=== PATIENT | female | born 1965 | race Caucasian/White ===

== ENCOUNTER 2016-03-03 08:38 | Inpatient (IN) | payer OTHER ==
[~2016-03-03] VITALS: Ht 165.1 cm; Wt 62.5 kg
[~2016-03-03 08:38] MED LIST: CELEBREX200 MG PO; CYCLOBENZAPRINE10 MG PO; VIVELLE-DOT0.1 MG
--- NOTE | 2016-03-03 11:00 | DIAGNOSTIC IMAGING REPORT ---
PROCEDURE: XR CHEST 1 VIEW INDICATION: SHORTNESS OF BREATH, initial encounter TECHNIQUE: Portable AP view 10:36 a.m. COMPARISON: None. FINDINGS: Markedly distended gastric bubble with mild elevation of the left hemidiaphragm and left basilar atelectasis Heart and mediastinum are normal. Thorax is normal. IMPRESSION: 1. Markedly distended gastric bubble with mild left basilar atelectasis
--- NOTE | 2016-03-03 12:44 | DIAGNOSTIC IMAGING REPORT ---
PROCEDURE: CT ABDOMEN/PELVIS W/O CONTRAST INDICATION: Diffuse abdominal pain TECHNIQUE: Noncontrast axial images were obtained of the entire abdomen and pelvis with sagittal and coronal reformations. COMPARISON: Chest x-ray 03/03/[address] abdomen/pelvis 01/26/2016. FINDINGS: ABDOMEN: Marked gaseous distention of the stomach and marked distention of multiple loops of small bowel. Decompression of the large bowel. Transition zone in the right lower quadrant. Cholecystectomy. Stranding around the head of the pancreas suggestive of pancreatitis. Liver, spleen, adrenal glands and kidneys are unremarkable. Normal abdominal aorta. PELVIS: Midline herniorrhaphy with stable 9 x 2.5 cm fluid collection posterior to the surgical mesh. Stable 1 cm fat-containing hernia superior to the surgical mesh. Stable 2 cm fat-containing midline suprapubic hernia. Hysterectomy. There is no free fluid or free air. Bones are unremarkable. IMPRESSION: 1. High-grade small bowel obstruction with transition point in the right lower quadrant 2. Cholecystectomy and hysterectomy 3. Findings suggestive of acute pancreatitis. Correlate clinically. 4. Midline ventral herniorrhaphy with stable postoperative seroma posterior to the surgical mesh 5. Results discussed with Dr. Leiva All CT scans at this facility use dose modulation, iterative reconstruction, and/or weight-based dosing when appropriate to reduce radiation dose to as low as reasonably achievable.
--- NOTE | 2016-03-03 13:06 | ED ORDER SUMMARY ---
..... Patient: LEAH MARTEL OrderSheet [facility] VisitID: [id number] [address] [place] [address] 50y, F Registration Date/Time: 03/03/2016 ORDER SHEET Weight: 61.2 kg (stated) Allergies: No Known Drug Allergy GENERAL ORDERS: CT Abd/Pel w Cont (No) (N/A) Urgent (09:04 03/03/2016 PHutchinson DO) (Ack 10:20 OHmagaly) (10:38 LWhalen R.N.) (Cancelled: GFR 3811:18 PHutchinson DO) Chest 1V Urgent (09:05 03/03/2016 PHutchinson DO) (Ack 10:20 OHlogannandez) (10:38 LWhalen R.N.) UA-Culture if indicated Urgent (:03/03/2016 PHutchinson DO) (10:16 LWhalen R.N.) Amylase Urgent (09:03/03/2016 PHutchinson DO) (Ack 10:19 OHlogannandez) (10:38 LWhalen R.N.) Lipase Urgent (09:03/03/2016 PHutchinson DO) (Ack 10:19 OHernandez) (10:38 LWhalen R.N.) Cardiac Panel Stat (09:03/03/2016 PHutchinson DO) (Ack 10:20 OHernandez) (10:38 LWhalen R.N.) Lactate, Serum Urgent (09:03/03/2016 PHutchinson DO) (Ack 10:20 OHlogannandez) (10:38 TBergley) Urine Drug Screen Urgent (09:03/03/2016 PHutchinson DO) (Ack 10:20 OHernandez) (10:38 LWhalen R.N.) BNP Urgent (:03/03/2016 PHutchinson DO) (Ack 10:20 OHernandez) (10:38 LWhalen R.N.) NPO (09:03/03/2016 PHutchinson DO) (Ack 10:19 OHernandez) (10:46 LWhalen R.N.) Blood Culture (No) (N/A) Urgent (10:30 03/03/2016 [facility]) (Ack 10:38 TBergley) (10:38 LWhalen R.N.) NG Tube (to light suction, to intermittent suction) (11:04 03/03/2016 [facility] DO) (11:10 LWhalen R.N.) EKG - ER Stat (11:05 03/03/2016 [facility]) (Ack 11:07 TBergley) (11:30 TBergley) CT Abd/Pel wo Cont (GFR 38.9) Urgent (11:18 03/03/2016 [facility]) (Ack 11:22 TBergley) (12:12 Victoria) Lactate, Serum (repeat now) Urgent (15:14 03/03/2016 [facility]) (Ack 15:52 TBergley) (16:32 Janetteck R.N.) MEDICATION ORDERS: IV FLUIDS: IV NS : initial bolus 1000 mL (1000 mL/hr), then 500 mL/hr for X2 (NOW) (09:04 03/03/2016 [facility]) (10:10 LSullivan R.N.) Dilaudid IV 0.5 mg (may repeat x 1 prn pain) (09:03/03/2016 [facility]) (10:33 LWhalen R.N.) Reglan IV 10 mg (NOW) (09:03/03/2016 [facility]) (10:33 LWhalen R.N.) Zofran IV 4 mg (NOW) (09:03/03/2016 [facility]) (10:34 LWhalen R.N.) Protonix IVP 40mg 40 mg (Mix in NS 10ml over 2min) (09:03/03/2016 [facility]) (10:33 LWhalen R.N.) Ceftriaxone IV 1 gm/50mL (NOW) (10:29 03/03/2016 [facility]) (Ack 10:46 LWhalen R.N.) (10:53 LWhalen R.N.) ORDER SHEET NOTES: [Electronically signed by Leo Leiva DO (:43 03/03/2016)] [Electronically signed by Sukumar Hoang R.N. (19:12 03/04/2016)] [Electronically locked/signed by Sukumar Hoang R.N. (:12 03/04/2016)]
--- NOTE | 2016-03-03 13:06 | ED CLINICAL REPORT ---
Clinical Report - Physicians/Mid Levels [facility] [address] [place] [address] 03/03/2016 8:39 Patient: LEAH MARTEL Time Seen: 08:50. Arrived- By private vehicle. Historian- patient. HISTORY OF PRESENT ILLNESS Chief Complaint: ABDOMINAL PAIN and VOMITING and NAUSEA abdominal distention. At its maximum, severity described as moderate. When seen in the E.D., severity described as moderate. Modifying factors- worsened by movement and food. Relieved by rest. This started about 2 days ago and is still present. It was gradual in onset and has been waxing/waning. It is described as "pain". Not described as well localized. No radiation. It is described as located in the right side of the back and left side of the back. The patient has had nausea. She has had vomiting. The vomiting has occurred several times. No bilious emesis, blood-tinged emesis or frankly bloody emesis. No diarrhea. Similar symptoms previously: None. Recent medical care: Not recently seen/assessed. REVIEW OF SYSTEMS No black stools, hematemesis, pain with urination, urinary frequency or bloody stools. No fever, headache, sore throat, chest pain or difficulty breathing. No chills. She has had difficulty with urination (decreased urination), and back pain. Last bowel movement: yesterday. All systems otherwise negative, except as recorded above. PAST HISTORY PCP: Dr Laguna. No history of bowel obstruction or diabetes mellitus. Gallstones. Hiatal hernia. Gastroesophageal reflux. Uterine fibroids. History of uterine cancer. (Bilateral tubovarian abscesses (noted during lap hyst)). Surgeries: Carpal tunnel surgery. Colonoscopy (with forceps polypectomy in 08/2013 - Dr Mueller). Endoscopy. Had complete abdominal hysterectomy with bilateral salpingectomy and oophorectomy due to uterine cancer ( 11 -complicated by poorly healing abdominal wound). Laparotomy (Moses fundoplication). (Nasal surgery). Medications: Hormone patch. Cyclobenzaprine HCl Oral. CeleBREX Oral. Allergies: No Known Drug Allergy. SOCIAL HISTORY Smoker- current status unknown. Occasional alcohol use. No drug use. ADDITIONAL NOTES The nursing notes have been reviewed. PHYSICAL EXAM Vital Signs: 03/03/2016 08:57 BP: 180/106. HR: 112. RR: 18. O2 saturation: 100%. Temp: 97 F. Appearance: Alert. Oriented X3. Patient in moderate distress. Eyes: Eyes normal inspection. No scleral icterus or pale conjunctivae. ENT: Pharynx normal. No pharyngeal erythema or tonsillar exudate. The mucous membranes are not dry. Neck: Normal inspection. Neck supple. CVS: Tachycardia. Heart sounds normal. Pulses normal. Respiratory: No respiratory distress. Breath sounds normal. Abdomen: Moderate tenderness diffusely. Guarding present. No mass. Distention with tenderness to palpation and tympany to percussion. No rebound tenderness. Back: Normal inspection. Skin: Skin warm and dry. Normal skin color. Normal skin turgor. Extremities: Extremities exhibit normal ROM. No lower extremity edema. No calf tenderness. No lower extremity edema. Neuro: Oriented X 3. No motor deficit. No sensory deficit. LABS, X-RAYS, AND EKG EKG: EKG time: (11:24). Regular narrow-complex tachycardia (ventricular rate 115). Sinus tachycardia. Left atrial enlargement. Nondiagnostic Q waves in lead V2 consistent with anteroseptal infarction. Non-specific ST segment / T wave abnormalities. Non-specific T wave inversion in lead III. The study has been interpreted contemporaneously by me. The EKG appears to be a good tracing. Rhythm Strip #1: Sinus tachycardia. Regular rhythm. Narrow QRS complexes. No ectopy. Chest X-ray: (IMPRESSION: 1. Markedly distended gastric bubble with mild left basilar atelectasis). Views: AP (portable). Technique: good. The X-rays were interpreted contemporaneously by me. The X-rays were discussed with the radiologist (via PACS report). A comparison with prior studies reveals that the findings are new. 01/26/2016 CT ABD/PELVIS: IMPRESSION: 1. Slight left inguinal bulge with Valsalva but no definite hernia 2. 3 cm midline suprapubic hernia with a reducible loop of small bowel with Valsalva maneuver 3. Midline ventral wall herniorrhaphy with mild progression of fluid collection/seroma posterior to the surgical mesh 4. Stable 1 cm fat filled hernia just superior to the midline herniorrhaphy 5. Cholecystectomy and hysterectomy versus uterine atrophy. Laboratory Tests: UA-Culture if indicated: (BUSTER: 03/03/2016 09:50) ( [facility] [place] 10:21[place] Final results Test Result Flag Units (Reference) URINE COLOR NADINE URINE APPEARANCE CLOUDY URINE GLUCOSE TRACE (NEGATIVE) URINE BILIRUBIN ICTOTEST NEGATIVE (NEGATIVE) URINE KETONE NEGATIVE (NEGATIVE) URINE SPECIFIC GRAVITY >= 1.030 (1.010-1.030) URINE PH 5.5 (5.0-8.0) URINE PROTEIN 2+ (NEGATIVE) URINE UROBILINOGEN 1.0 EU/dL (0.2-1.0) URINE NITRITE NEGATIVE (NEGATIVE) URINE BLOOD 2+ (NEGATIVE) URINE LEUK ESTERASE NEGATIVE (NEGATIVE) URINE RBC NONE SEEN rbc/hpf (0-1) URINE WBC 3-5 wbc/hpf (0-1) URINE EPITHELIAL CELLS 10-15 EPI/hpf (0-5) URINE BACTERIA MANY (4+) (NONE SEEN) URINE COMMENT CULTURE INDICATED URINE CULTURES ARE SET-UP BASED ON THE FOLLOWING CRITERIA:POSITIVE NITRITEPOSITIVE LEUKOCYTE ESTERASEGREATER THAN 10 WHITE BLOOD CELLSMODERATE (2+) OR GREATER BACTERIA CBC w Diff: (BUSTER: 03/03/2016 10:10) ( [facility] [place] 10:53) Final results Test Result Flag Units (Reference) WHITE BLOOD COUNT 13.9 H K/uL (4.5-11.5) RED BLOOD COUNT 5.90 H M/uL (4.00-5.20) HEMOGLOBIN 17.3 H gm/dL (12.0-16.0) HEMATOCRIT 52.9 H % (36.0-46.0) MEAN CELL VOLUME 90 fL (80-100) MEAN CORPUSCULAR HGB 29 pg (26-34) MEAN CORPUSCULAR HGB CONC 33 g/dL (31-37) RED CELL DISTRIBUTION WIDTH 13.3 % (11.6-14.8) PLATELET COUNT 276 K/uL (150-400) NEUTROPHIL % 94.6 H % (50-75) LYMPH % 4.0 L % (25-40) MONO % 1.2 L % (3-14) EOSINOPHIL % 0 % (0-4) BASOPHIL % 0.2 % (0-2) PT with INR: (BUSTER: 03/03/2016 16:15) ( [facility] [place] 16:53) Final results Test Result Flag Units (Reference) INR 1.1 (0.8-1.2) Low Intensity Therapy: INR 1.5-2.0 PT range 18.5-23.1Mod.Intensity Therapy: INR 2.0-3.0 PT range 23.1-31.5High Intensity Therapy: INR 2.5-3.5 PT range 27.4-35.5High Intensity Therapy 2: INR 3.0-4.0 PT range 31.5-39.3 APTT 24 SECONDS (24-34) BMP: (BUSTER: 03/03/2016 16:15) ( [facility] 03/03/2016 17:06) Final results Test Result Flag Units (Reference) GLUCOSE 105 mg/dL (70-110) BUN 27 H mg/dL (7-18) CREATININE 0.9 mg/dL (0.6-1.3) Estimated GFR >60 mL/min Estimated GFR- >60 mL/min Note: Persistent reduction over 3 months in eGFR<60 mL/min/1.73 m2 defines CKD. Patients with eGFR values>=60 mL/min/1.73 m2 may also have CKD if evidence ofpersistent proteinuria. Additional information may be foundat www.kidney.org. SODIUM 142 mmol/L (136-145) POTASSIUM 4.2 mmol/L (3.5-5.1) CHLORIDE 107 mmol/L (98-107) CARBON DIOXIDE 24 mmol/L (21-32) CALCIUM 8.6 mg/dL (8.5-10.1) Lactate, Serum: (BUSTER: 03/03/2016 15:14) ( [facility] 03/03/2016 17:30) Final results Test Result Flag Units (Reference) LACTIC ACID 1.3 mmol/L (0.4-2.0) Urine Drug Screen: (BUSTER: 03/03/2016 09:50) ( [facility] [place] 10:31) Final results Test Result Flag Units (Reference) AMPHETAMINE/METHAMPHETAMINE NEGATIVE (NEGATIVE) QNS FOR GC/MS CONFIRMATION. BARBITURATE NEGATIVE (NEGATIVE) BENZODIAZEPINE NEGATIVE (NEGATIVE) CANNABINOID POSITIVE H (NEGATIVE) COCAINE POSITIVE H (NEGATIVE) ECSTASY NEGATIVE (NEGATIVE) METHADONE NEGATIVE (NEGATIVE) OPIATE NEGATIVE (NEGATIVE) The urine drug screen is a qualitative screening test fordrug overdose and abuse. All screen results should beconsidered as presumptive.Drugs screened for are as follows:BenzodiazepinesCocaineAmphetamines/MetamphetaminesTHC (Tetrahydrocannabinol)OpiatesBarbituratesEcstasyMethadonePositive results are unconfirmed. For confirmation, notifythe lab for the specimen to be sent to the reference lab.All confirmations must be performed by a differentmethodology.The ingestion of natural herbal and plant productscontaining Ephedra/Ephedra metabolites can produce in urineone or more substances capable of cross reacting withamphetamine/methamphetamine immunoassays. These testsprovide a preliminary result only. A more specificalternative chemical method must be used to obtain aconfirmed analytical result. BNP: (BUSTER: 03/03/2016 10:10) ( [facility] [place]/03[place] 11:27) Final results Test Result Flag Units (Reference) B-TYPE NATRIURETIC PEPTIDE 19.0 pg/ml (5-100) Lactate, Serum: (BUSTER: 03/03/2016 10:29) ( [facility] 03/03/2016 11:56) Final results Test Result Flag Units (Reference) LACTIC ACID 5.5 H mmol/L (0.4-2.0) CRITICAL RESULTS CALLEDCalled to ESME MAURICIO IN ED 03/03/16 1155Were 2 patient identifiers used? YWas the result read back? Y CHEM 13 PANEL: (BUSTER: 03/03/2016 10:10) ( [facility] 03/03/2016 12:32) Final results Test Result Flag Units (Reference) GLUCOSE 316 H mg/dL (70-110) BUN 32 H mg/dL (7-18) CREATININE 1.5 H mg/dL (0.6-1.3) Estimated GFR 38.91 mL/min Estimated GFR- 47.16 mL/min Note: Persistent reduction over 3 months in eGFR<60 mL/min/1.73 m2 defines CKD. Patients with eGFR values>=60 mL/min/1.73 m2 may also have CKD if evidence ofpersistent proteinuria. Additional information may be foundat www.kidney.org. SODIUM 141 mmol/L (136-145) POTASSIUM 4.0 mmol/L (3.5-5.1) CHLORIDE 99 mmol/L (98-107) CARBON DIOXIDE 22 mmol/L (21-32) CALCIUM 10.0 mg/dL (8.5-10.1) TOTAL PROTEIN 7.9 g/dL (6.4-8.2) ALBUMIN 4.5 g/dL (3.3-5.0) BILIRUBIN, TOTAL 0.9 mg/dL (0.0-1.0) ALKALINE PHOSPHATASE 161 H U/L (46-116) AST (SGOT) 1220 H U/L (15-37) ALT (SGPT) 875 H U/L (12-78) CPK 121 U/L (24-260) MAGNESIUM 2.0 mg/dL (1.8-2.4) AMYLASE 549 H U/L (25-115) TROPONIN I <0.05 ng/mL (0.00-1.5) TROPONIN REFERENCE RANGE:<0.1 NEGATIVE0.1-1.5 INDETERMINANT>1.5 POSITIVE LIPASE 6954 H U/L (73-393) . Microbiology: Urine culture ordered. Pulse Oximetry: 03/03/2016 08:57 O2 saturation: 100%. (FIO2 - room air). Interpretation: normal. PROGRESS AND PROCEDURES Course of Care: Normal Saline 3 liters IVPB given. Invanz 1 gram IVPB given. Zofran 4 mg IVP given. Reglan 10 mg IVP given. Ceftriaxone 1gm IVP given. Dilaudid 0.5 mg IVP given. 11:53 03/03/16. No beds at [facility]; No beds at [facility]. Calling PRMCE 11:57 03/03/16. No beds at [facility]. Spoke with Hong marie) - staffing issue at [facility], so no beds. Will board in ED until ICU bed becomes available. Pt has had several surgeries at [facility] and other work up and treatment here. Her surgeon, Dr Santoyo is switchboard operator receptionist and will see her. 17:31 03/03/16. Repeat lactic acid decreasing nicely from 5.5 to 1.3 indicating good response to resuscitation 03/03/2016 18:45 BP: 144/77. HR: 90. RR: 18. O2 saturation: 94%. Temp: 98.6 F. Pain level now: 0/10. 03/03/2016 17:00 BP: 135/78. HR: 93. RR: 18. O2 saturation: 95%. Pain level now: 2/10. Patient is stable. Physical exam findings are improved. Symptoms better. Critical care performed (90 minutes). Time is exclusive of separately billable procedures. Time includes: direct patient care, patient reassessment, coordination of patient care, interpretation of data (laboratory data and chest xrays), review of patient's medical records, medical consultation, family consultation regarding treatment decisions and documentation of patient care. Procedures excluded from critical care time: electrocardiography. Discussed case with hospitalist, ([facility] - states he cannot accept this patient). Reviewed test results. Agreed upon treatment plan and decision to admit. Will not see patient. Refers case to other health care provider. Discussed case with health care provider (Ervin call returned 15:12; Dr Carrillo call returned 15:12 - Dr Carrillo spoke with Dr Mueller and Dr Mueller will be admitting). Reviewed test results. Agreed upon treatment plan. Health care provider will see patient in ED. Patient/family counseled. Old ED, inpatient and clinic records reviewed. Admission orders written. Disposition: Admitted to the Critical Care Unit. Pt will be boarded in the ED as an ICU pt. Condition: serious and guarded. CLINICAL IMPRESSION Complete small bowel obstruction associated with intestinal bands / adhesions (High Grade; with history of prior suprapubic area hernia and midline ventral wall herniorrhaphy and other midline hernia). Moderate dehydration. Acute idiopathic pancreatitis. New onset, poorly controlled type 2 diabetes with hyperglycemia. No coma. Occasional substance abuse- tobacco (cigarettes), marijuana, cocaine with drug induced mood disorder. Abnormal liver function test. Lactic acidosis. (Electronically signed by Leo Leiva DO 03/03/2016 20:43)
--- NOTE | 2016-03-03 13:06 | ED ORDER SUMMARY ---
..... Patient: LEAH MARTEL OrderSheet [facility] VisitID: [id number] [address] [place] [address] 50y, F Registration Date/Time: 03/03/2016 ORDER SHEET Weight: 61.2 kg (stated) Allergies: No Known Drug Allergy GENERAL ORDERS: CT Abd/Pel w Cont (No) (N/A) Urgent (09:04 03/03/2016 PHutchinson DO) (Ack 10:20 OHmagaly) (10:38 LWhalen R.N.) (Cancelled: GFR 3811:18 PHutchinson DO) Chest 1V Urgent (09:05 03/03/2016 PHutchinson DO) (Ack 10:20 OHlogannandez) (10:38 LWhalen R.N.) UA-Culture if indicated Urgent (:03/03/2016 PHutchinson DO) (10:16 LWhalen R.N.) Amylase Urgent (09:03/03/2016 PHutchinson DO) (Ack 10:19 OHlogannandez) (10:38 LWhalen R.N.) Lipase Urgent (09:03/03/2016 PHutchinson DO) (Ack 10:19 OHernandez) (10:38 LWhalen R.N.) Cardiac Panel Stat (09:03/03/2016 PHutchinson DO) (Ack 10:20 OHernandez) (10:38 LWhalen R.N.) Lactate, Serum Urgent (09:03/03/2016 PHutchinson DO) (Ack 10:20 OHlogannandez) (10:38 TBergley) Urine Drug Screen Urgent (09:03/03/2016 PHutchinson DO) (Ack 10:20 OHernandez) (10:38 LWhalen R.N.) BNP Urgent (:03/03/2016 PHutchinson DO) (Ack 10:20 OHernandez) (10:38 LWhalen R.N.) NPO (09:03/03/2016 PHutchinson DO) (Ack 10:19 OHernandez) (10:46 LWhalen R.N.) Blood Culture (No) (N/A) Urgent (10:30 03/03/2016 [facility]) (Ack 10:38 TBergley) (10:38 LWhalen R.N.) NG Tube (to light suction, to intermittent suction) (11:04 03/03/2016 [facility] DO) (11:10 LWhalen R.N.) EKG - ER Stat (11:05 03/03/2016 [facility]) (Ack 11:07 TBergley) (11:30 TBergley) CT Abd/Pel wo Cont (GFR 38.9) Urgent (11:18 03/03/2016 [facility]) (Ack 11:22 TBergley) (12:12 Victoria) Lactate, Serum (repeat now) Urgent (15:14 03/03/2016 [facility]) (Ack 15:52 TBergley) (16:32 Janetteck R.N.) MEDICATION ORDERS: IV FLUIDS: IV NS : initial bolus 1000 mL (1000 mL/hr), then 500 mL/hr for X2 (NOW) (09:04 03/03/2016 [facility]) (10:10 LSullivan R.N.) Dilaudid IV 0.5 mg (may repeat x 1 prn pain) (09:03/03/2016 [facility]) (10:33 LWhalen R.N.) Reglan IV 10 mg (NOW) (09:03/03/2016 [facility]) (10:33 LWhalen R.N.) Zofran IV 4 mg (NOW) (09:03/03/2016 [facility]) (10:34 LWhalen R.N.) Protonix IVP 40mg 40 mg (Mix in NS 10ml over 2min) (09:03/03/2016 [facility]) (10:33 LWhalen R.N.) Ceftriaxone IV 1 gm/50mL (NOW) (10:29 03/03/2016 [facility]) (Ack 10:46 LWhalen R.N.) (10:53 LWhalen R.N.) ORDER SHEET NOTES: [Electronically signed by Leo Leiva DO (:43 03/03/2016)] [Electronically signed by Sukumar Hoang R.N. (19:12 03/04/2016)] [Electronically locked/signed by Sukumar Hoang R.N. (:12 03/04/2016)]
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
--- NOTE | 2016-03-03 13:06 | ED CLINICAL REPORT ---
Clinical Report - Physicians/Mid Levels [facility] [address] [place] [address] 03/03/2016 8:39 Patient: LEAH MARTEL Time Seen: 08:50. Arrived- By private vehicle. Historian- patient. HISTORY OF PRESENT ILLNESS Chief Complaint: ABDOMINAL PAIN and VOMITING and NAUSEA abdominal distention. At its maximum, severity described as moderate. When seen in the E.D., severity described as moderate. Modifying factors- worsened by movement and food. Relieved by rest. This started about 2 days ago and is still present. It was gradual in onset and has been waxing/waning. It is described as "pain". Not described as well localized. No radiation. It is described as located in the right side of the back and left side of the back. The patient has had nausea. She has had vomiting. The vomiting has occurred several times. No bilious emesis, blood-tinged emesis or frankly bloody emesis. No diarrhea. Similar symptoms previously: None. Recent medical care: Not recently seen/assessed. REVIEW OF SYSTEMS No black stools, hematemesis, pain with urination, urinary frequency or bloody stools. No fever, headache, sore throat, chest pain or difficulty breathing. No chills. She has had difficulty with urination (decreased urination), and back pain. Last bowel movement: yesterday. All systems otherwise negative, except as recorded above. PAST HISTORY PCP: Dr Laguna. No history of bowel obstruction or diabetes mellitus. Gallstones. Hiatal hernia. Gastroesophageal reflux. Uterine fibroids. History of uterine cancer. (Bilateral tubovarian abscesses (noted during lap hyst)). Surgeries: Carpal tunnel surgery. Colonoscopy (with forceps polypectomy in 08/2013 - Dr Mueller). Endoscopy. Had complete abdominal hysterectomy with bilateral salpingectomy and oophorectomy due to uterine cancer ( 12 -complicated by poorly healing abdominal wound). Laparotomy (Moses fundoplication). (Nasal surgery). Medications: Hormone patch. Cyclobenzaprine HCl Oral. CeleBREX Oral. Allergies: No Known Drug Allergy. SOCIAL HISTORY Smoker- current status unknown. Occasional alcohol use. No drug use. ADDITIONAL NOTES The nursing notes have been reviewed. PHYSICAL EXAM Vital Signs: 03/03/2016 08:57 BP: 180/106. HR: 112. RR: 18. O2 saturation: 100%. Temp: 97 F. Appearance: Alert. Oriented X3. Patient in moderate distress. Eyes: Eyes normal inspection. No scleral icterus or pale conjunctivae. ENT: Pharynx normal. No pharyngeal erythema or tonsillar exudate. The mucous membranes are not dry. Neck: Normal inspection. Neck supple. CVS: Tachycardia. Heart sounds normal. Pulses normal. Respiratory: No respiratory distress. Breath sounds normal. Abdomen: Moderate tenderness diffusely. Guarding present. No mass. Distention with tenderness to palpation and tympany to percussion. No rebound tenderness. Back: Normal inspection. Skin: Skin warm and dry. Normal skin color. Normal skin turgor. Extremities: Extremities exhibit normal ROM. No lower extremity edema. No calf tenderness. No lower extremity edema. Neuro: Oriented X 3. No motor deficit. No sensory deficit. LABS, X-RAYS, AND EKG EKG: EKG time: (11:24). Regular narrow-complex tachycardia (ventricular rate 115). Sinus tachycardia. Left atrial enlargement. Nondiagnostic Q waves in lead V2 consistent with anteroseptal infarction. Non-specific ST segment / T wave abnormalities. Non-specific T wave inversion in lead III. The study has been interpreted contemporaneously by me. The EKG appears to be a good tracing. Rhythm Strip #1: Sinus tachycardia. Regular rhythm. Narrow QRS complexes. No ectopy. Chest X-ray: (IMPRESSION: 1. Markedly distended gastric bubble with mild left basilar atelectasis). Views: AP (portable). Technique: good. The X-rays were interpreted contemporaneously by me. The X-rays were discussed with the radiologist (via PACS report). A comparison with prior studies reveals that the findings are new. 01/26/2016 CT ABD/PELVIS: IMPRESSION: 1. Slight left inguinal bulge with Valsalva but no definite hernia 2. 3 cm midline suprapubic hernia with a reducible loop of small bowel with Valsalva maneuver 3. Midline ventral wall herniorrhaphy with mild progression of fluid collection/seroma posterior to the surgical mesh 4. Stable 1 cm fat filled hernia just superior to the midline herniorrhaphy 5. Cholecystectomy and hysterectomy versus uterine atrophy. Laboratory Tests: UA-Culture if indicated: (BUSTER: 03/03/2016 09:50) [facility] Final results Test Result Flag Units (Reference) URINE COLOR NADINE URINE APPEARANCE CLOUDY URINE GLUCOSE TRACE (NEGATIVE) URINE BILIRUBIN ICTOTEST NEGATIVE (NEGATIVE) URINE KETONE NEGATIVE (NEGATIVE) URINE SPECIFIC GRAVITY >= 1.030 (1.010-1.030) URINE PH 5.5 (5.0-8.0) URINE PROTEIN 2+ (NEGATIVE) URINE UROBILINOGEN 1.0 EU/dL (0.2-1.0) URINE NITRITE NEGATIVE (NEGATIVE) URINE BLOOD 2+ (NEGATIVE) URINE LEUK ESTERASE NEGATIVE (NEGATIVE) URINE RBC NONE SEEN rbc/hpf (0-1) URINE WBC 3-5 wbc/hpf (0-1) URINE EPITHELIAL CELLS 10-15 EPI/hpf (0-5) URINE BACTERIA MANY (4+) (NONE SEEN) URINE COMMENT CULTURE INDICATED URINE CULTURES ARE SET-UP BASED ON THE FOLLOWING CRITERIA:POSITIVE NITRITEPOSITIVE LEUKOCYTE ESTERASEGREATER THAN 10 WHITE BLOOD CELLSMODERATE (2+) OR GREATER BACTERIA CBC w Diff: (BUSTER: 03/03/2016 10:10) [facility] [place] 10[facility]53) Final results Test Result Flag Units (Reference) WHITE BLOOD COUNT 13.9 H K/uL (4.5-11.5) RED BLOOD COUNT 5.90 H M/uL (4.00-5.20) HEMOGLOBIN 17.3 H gm/dL (12.0-16.0) HEMATOCRIT 52.9 H % (36.0-46.0) MEAN CELL VOLUME 90 fL (80-100) MEAN CORPUSCULAR HGB 29 pg (26-34) MEAN CORPUSCULAR HGB CONC 33 g/dL (31-37) RED CELL DISTRIBUTION WIDTH 13.3 % (11.6-14.8) PLATELET COUNT 276 K/uL (150-400) NEUTROPHIL % 94.6 H % (50-75) LYMPH % 4.0 L % (25-40) MONO % 1.2 L % (3-14) EOSINOPHIL % 0 % (0-4) BASOPHIL % 0.2 % (0-2) PT with INR: (BUSTER: 03/03/2016 16:15) ( [facility] [place] 03/03/2016 16:53) Final results Test Result Flag Units (Reference) INR 1.1 (0.8-1.2) Low Intensity Therapy: INR 1.5-2.0 PT range 18.5-23.1Mod.Intensity Therapy: INR 2.0-3.0 PT range 23.1-31.5High Intensity Therapy: INR 2.5-3.5 PT range 27.4-35.5High Intensity Therapy 2: INR 3.0-4.0 PT range 31.5-39.3 APTT 24 SECONDS (24-34) BMP: (BUSTER: 03/03/2016 16:15) ( [facility] 03/03/2016 17:06) Final results Test Result Flag Units (Reference) GLUCOSE 105 mg/dL (70-110) BUN 27 H mg/dL (7-18) CREATININE 0.9 mg/dL (0.6-1.3) Estimated GFR >60 mL/min Estimated GFR- >60 mL/min Note: Persistent reduction over 3 months in eGFR<60 mL/min/1.73 m2 defines CKD. Patients with eGFR values>=60 mL/min/1.73 m2 may also have CKD if evidence ofpersistent proteinuria. Additional information may be foundat www.[email or web address].org. SODIUM 142 mmol/L (136-145) POTASSIUM 4.2 mmol/L (3.5-5.1) CHLORIDE 107 mmol/L (98-107) CARBON DIOXIDE 24 mmol/L (21-32) CALCIUM 8.6 mg/dL (8.5-10.1) Lactate, Serum: (BUSTER: 03/03/2016 15:14) ( [facility] 03/03/2016 17:30) Final results Test Result Flag Units (Reference) LACTIC ACID 1.3 mmol/L (0.4-2.0) Urine Drug Screen: (BUSTER: 03/03/2016 09:50) ( [facility] [place] 10:31) Final results Test Result Flag Units (Reference) AMPHETAMINE/METHAMPHETAMINE NEGATIVE (NEGATIVE) QNS FOR GC/MS CONFIRMATION. BARBITURATE NEGATIVE (NEGATIVE) BENZODIAZEPINE NEGATIVE (NEGATIVE) CANNABINOID POSITIVE H (NEGATIVE) COCAINE POSITIVE H (NEGATIVE) ECSTASY NEGATIVE (NEGATIVE) METHADONE NEGATIVE (NEGATIVE) OPIATE NEGATIVE (NEGATIVE) The urine drug screen is a qualitative screening test fordrug overdose and abuse. All screen results should beconsidered as presumptive.Drugs screened for are as follows:BenzodiazepinesCocaineAmphetamines/MetamphetaminesTHC (Tetrahydrocannabinol)OpiatesBarbituratesEcstasyMethadonePositive results are unconfirmed. For confirmation, notifythe lab for the specimen to be sent to the reference lab.All confirmations must be performed by a differentmethodology.The ingestion of natural herbal and plant productscontaining Ephedra/Ephedra metabolites can produce in urineone or more substances capable of cross reacting withamphetamine/methamphetamine immunoassays. These testsprovide a preliminary result only. A more specificalternative chemical method must be used to obtain aconfirmed analytical result. BNP: (BUSTER: 03/03/2016 10:10) [facility] [place] 11:27) Final results Test Result Flag Units (Reference) B-TYPE NATRIURETIC PEPTIDE 19.0 pg/ml (5-100) Lactate, Serum: (BUSTER: 03/03/2016 10:29) ( [facility] 03/03/2016 11:56) Final results Test Result Flag Units (Reference) LACTIC ACID 5.5 H mmol/L (0.4-2.0) CRITICAL RESULTS CALLEDCalled to ESME MAURICIO IN ED 03/03/16 1155Were 2 patient identifiers used? YWas the result read back? Y CHEM 13 PANEL: (BUSTER: 03/03/2016 10:10) ( [facility] 03/03/2016 12:32) Final results Test Result Flag Units (Reference) GLUCOSE 316 H mg/dL (70-110) BUN 32 H mg/dL (7-18) CREATININE 1.5 H mg/dL (0.6-1.3) Estimated GFR 38.91 mL/min Estimated GFR- 47.16 mL/min Note: Persistent reduction over 3 months in eGFR<60 mL/min/1.73 m2 defines CKD. Patients with eGFR values>=60 mL/min/1.73 m2 may also have CKD if evidence ofpersistent proteinuria. Additional information may be foundat www.[email or web address].org. SODIUM 141 mmol/L (136-145) POTASSIUM 4.0 mmol/L (3.5-5.1) CHLORIDE 99 mmol/L (98-107) CARBON DIOXIDE 22 mmol/L (21-32) CALCIUM 10.0 mg/dL (8.5-10.1) TOTAL PROTEIN 7.9 g/dL (6.4-8.2) ALBUMIN 4.5 g/dL (3.3-5.0) BILIRUBIN, TOTAL 0.9 mg/dL (0.0-1.0) ALKALINE PHOSPHATASE 161 H U/L (46-116) AST (SGOT) 1220 H U/L (15-37) ALT (SGPT) 875 H U/L (12-78) CPK 121 U/L (24-260) MAGNESIUM 2.0 mg/dL (1.8-2.4) AMYLASE 549 H U/L (25-115) TROPONIN I <0.05 ng/mL (0.00-1.5) TROPONIN REFERENCE RANGE:<0.1 NEGATIVE0.1-1.5 INDETERMINANT>1.5 POSITIVE LIPASE 6954 H U/L (73-393) . Microbiology: Urine culture ordered. Pulse Oximetry: 03/03/2016 08:57 O2 saturation: 100%. (FIO2 - room air). Interpretation: normal. PROGRESS AND PROCEDURES Course of Care: Normal Saline 3 liters IVPB given. Invanz 1 gram IVPB given. Zofran 4 mg IVP given. Reglan 10 mg IVP given. Ceftriaxone 1gm IVP given. Dilaudid 0.5 mg IVP given. 11:53 03/03/16. No beds at [facility]; No beds at [facility]. Calling [facility] 11:57 03/03/16. No beds at [facility]. Spoke with Hong marie) - staffing issue at [facility], so no beds. Will board in ED until ICU bed becomes available. Pt has had several surgeries at [facility] and other work up and treatment here. Her surgeon, Dr Santoyo is occupational analyst and will see her. 17:31 03/03/16. Repeat lactic acid decreasing nicely from 5.5 to 1.3 indicating good response to resuscitation 03/03/2016 18:45 BP: 144/77. HR: 90. RR: 18. O2 saturation: 94%. Temp: 98.6 F. Pain level now: 0/10. 03/03/2016 17:00 BP: 135/78. HR: 93. RR: 18. O2 saturation: 95%. Pain level now: 2/10. Patient is stable. Physical exam findings are improved. Symptoms better. Critical care performed (90 minutes). Time is exclusive of separately billable procedures. Time includes: direct patient care, patient reassessment, coordination of patient care, interpretation of data (laboratory data and chest xrays), review of patient's medical records, medical consultation, family consultation regarding treatment decisions and documentation of patient care. Procedures excluded from critical care time: electrocardiography. Discussed case with hospitalist, ([facility] - states he cannot accept this patient). Reviewed test results. Agreed upon treatment plan and decision to admit. Will not see patient. Refers case to other health care provider. Discussed case with health care provider (Ervin call returned 15:12; Dr Carrillo call returned 15:12 - Dr Carrillo spoke with Dr Mueller and Dr Mueller will be admitting). Reviewed test results. Agreed upon treatment plan. Health care provider will see patient in ED. Patient/family counseled. Old ED, inpatient and clinic records reviewed. Admission orders written. Disposition: Admitted to the Critical Care Unit. Pt will be boarded in the ED as an ICU pt. Condition: serious and guarded. CLINICAL IMPRESSION Complete small bowel obstruction associated with intestinal bands / adhesions (High Grade; with history of prior suprapubic area hernia and midline ventral wall herniorrhaphy and other midline hernia). Moderate dehydration. Acute idiopathic pancreatitis. New onset, poorly controlled type 2 diabetes with hyperglycemia. No coma. Occasional substance abuse- tobacco (cigarettes), marijuana, cocaine with drug induced mood disorder. Abnormal liver function test. Lactic acidosis. (Electronically signed by Leo Leiva DO 03/03/2016 20:43)
--- NOTE | 2016-03-03 16:10 | Progress Note ---
Subjective General Medical Consultation Patient Name: Lynn Starr Admission Date: March 03, 2016 Primary Care Provider: Atul Laguna M.D. Attending Physician: Leo Santoyo M.D. Admitting Physician: Leo Santoyo M.D. Product Safety Associate: Harman Carrillo M.D. SUBJECTIVE Historian: Patient, previous medical records Reliability: Fair Chief Complaint: Abdominal pain nausea and vomiting History of Present Illness: The patient is a 50-year-old white female with a significant past medical history of uterine carcinoma, degenerative joint disease, gastroesophageal reflux, depression who presented to [facility] emergency department on the day of admission secondary to complaints of nausea, vomiting, and abdominal pain. [facility] ER evaluation was consistent with acute pancreatitis and small bowel obstruction. Secondary to the above, the patient was admitted by Leo Santoyo M.D. with medical consultation by Harman Carrillo M.D. for further evaluation and treatment. PAST MEDICAL HISTORY Illnesses: 1. Uterine carcinoma 2. Gastroesophageal reflux 3. Degenerative joint disease 4. Depression 5. Low back pain Allergies: 1. No known drug allergies Medications: 1. Celebrex 200 mg 1 by mouth daily 2. Vivelle 0.1 mg by mouth daily 3. Flexeril 10 mg one half to one by mouth daily at bedtime Surgery: 1. Hysterectomy 2. Carpal tunnel release Injuries: 1. No significant Hospitalizations: 1. For above surgery and medical problems FAMILY HISTORY Parents: 1. Father, Dilip, living, 74, coronary disease-status post myocardial infarction , 2. Mother, Georgiana, living, 75, coronary disease, myocardial infarction, aneurysm Siblings: 1. Male, living, 46, healthy Children: 1. None Other significant family history: None SOCIAL HISTORY 1. Marital Status: Single 2. [employer]: [employer] 3. Education: High school 4. Employment History: [employer] employee, 5 years 5. Occupational health exposures: Dust, loud noises HABITS 1. Tobacco: 35 pack years, one half pack per day 2. Drugs: None 3. Alcohol: One ounces per month 4. Caffeine: 2-3 cups per day HEALTH SUPERVISION Item/Test 1. Colonoscopy 2014, [place] screen 2016, audiogram 2016, Demodex M 2016 IMMUNIZATIONS: 1. Pneumococcal: No previous 2. Influenza: Unknown 3. Tetanus: Unknown REVIEW OF SYSTEMS Remarkable for those things stated in the history of present illness and past medical history. Seventeen point review of system completed with the following notable findings: Gastrointestinal: Nausea and vomiting, abdominal pain Physical Exam General Appearance Alert, Oriented X3, Cooperative, No acute distress HEENT Atraumatic, PERRLA, EOMI, Moist mucous membranes, NG tube in place Lungs Clear to auscultation, Normal air movement Neck Supple, No JVD Cardiovascular Regular rate and rhythm, Normal S1 and S2, No murmurs, gallops, rubs Abdomen Soft, No rebound, No masses, mild diffuse tenderness most significant in the epigastric region Extremities No cyanosis, No clubbing, No edema Neurological Cranial nerves intact, Strength 5/5 x4 ext's, No lateralizing signs Psych/Mental Status Mental status normal, Mood normal LAB Results Laboratory Tests 03/03 03/03 03/03 03/03 1546 1029 1010 1010 Chemistry Plasma Sodium (136 - 145 mmol/L) 141 Plasma Potassium (3.5 - 5.1 mmol/L) 4.0 Plasma Chloride (98 - 107 mmol/L) 99 CO2 (Enzymatic) (21 - 32 mmol/L) 22 BUN (7 - 18 mg/dL) 32 Creatinine (0.6 - 1.3 mg/dL) 1.5 Est GFR ( Amer) (mL/min) 47.16 Est GFR (Non-Af Amer) (mL/min) 38.91 Glucose (70 - 110 mg/dL) 316 Lactic Acid (0.4 - 2.0 mmol/L) Cancelled 5.5 Plasma Calcium (8.5 - 10.1 mg/dL) 10.0 Plasma Magnesium (1.8 - 2.4 mg/dL) 2.0 Total Bilirubin (0.0 - 1.0 mg/dL) 0.9 AST (15 - 37 U/L) 1220 ALT (12 - 78 U/L) 875 Alkaline Phosphatase (46 - 116 U/L) 161 Creatine Kinase (24 - 260 U/L) 121 Troponin (0.00 - 1.5 ng/mL) <0.05 B-Natriuretic Peptide (5 - 100 pg/ml) 19.0 Total Protein (6.4 - 8.2 g/dL) 7.9 Albumin (3.3 - 5.0 g/dL) 4.5 Amylase (25 - 115 U/L) 549 Lipase (73 - 393 U/L) 6954 Hematology WBC (4.5 - 11.5 K/uL) 13.9 RBC (4.00 - 5.20 M/uL) 5.90 Hgb (12.0 - 16.0 gm/dL) 17.3 Hct (36.0 - 46.0 %) 52.9 MCV (80 - 100 fL) 90 MCH (26 - 34 pg) 29 RDW (11.6 - 14.8 %) 13.3 Neut % (Auto) (50 - 75 %) 94.6 Lymph % (Auto) (25 - 40 %) 4.0 Preston % (Auto) (3 - 14 %) 1.2 Eos % (Auto) (0 - 4 %) 0 Baso % (Auto) (0 - 2 %) 0.2 Plt Count, EDTA (150 - 400 K/uL) 276 PUBS MCHC (31 - 37 g/dL) 33 Toxicology Urine Opiates Screen Cancelled Urine Methadone Screen Cancelled Ur Barbiturates Screen Cancelled U Amphetamin/Meth Scrn Cancelled MDMA (Ecstasy) Screen Cancelled U Benzodiazepines Scrn Cancelled Urine Cocaine Screen Cancelled U Cannabinoids Screen Cancelled 03/03 03/03 0950 0906 Chemistry Amylase Cancelled Lipase Cancelled Toxicology Urine Opiates Screen (NEGATIVE) NEGATIVE Urine Methadone Screen (NEGATIVE) NEGATIVE Ur Barbiturates Screen (NEGATIVE) NEGATIVE U Amphetamin/Meth Scrn (NEGATIVE) NEGATIVE MDMA (Ecstasy) Screen (NEGATIVE) NEGATIVE U Benzodiazepines Scrn (NEGATIVE) NEGATIVE Urine Cocaine Screen (NEGATIVE) POSITIVE U Cannabinoids Screen (NEGATIVE) POSITIVE Urines Urine Color NADINE Urine Appearance CLOUDY Urine pH (5.0 - 8.0) 5.5 Ur Specific [place] (1.010 - 1.030) >= 1.030 Urine Protein (NEGATIVE) 2+ Urine Ketones (NEGATIVE) NEGATIVE Urine Blood (NEGATIVE) 2+ Urine Nitrite (NEGATIVE) NEGATIVE Ur Bilirubin Confirm (NEGATIVE) NEGATIVE Urine Urobilinogen (0.2 - 1.0 EU/dL) 1.0 Ur Leukocyte Esterase (NEGATIVE) NEGATIVE Urine RBC (0 - 1 rbc/hpf) NONE SEEN Urine WBC (0 - 1 wbc/hpf) 3-5 Ur Epithelial Cells (0 - 5 EPI/hpf) 10-15 Urine Bacteria (NONE SEEN) MANY (4+) Urine Glucose (NEGATIVE) TRACE Urine Comment CULTURE INDICATED Microbiology Date/Time Procedure - Status Source Growth 03/03 1043 Blood Culture - RECD BLOOD 03/03 0950 Urine Culture - RECD URINE CC Imaging CT Scan Abdomen-Pelvis IMPRESSION: 1. High-grade small bowel obstruction with transition point in the right lower quadrant 2. Cholecystectomy and hysterectomy 3. Findings suggestive of acute pancreatitis. Correlate clinically. 4. Midline ventral herniorrhaphy with stable postoperative seroma posterior to the surgical mesh 5. Results discussed with Dr. Leiva Dictated by: AI BOYER MD D: ISHMAEL;03/03/16 1244 Chest X-Ray IMPRESSION: 1. Markedly distended gastric bubble with mild left basilar atelectasis Dictated by: AI BOYER MD D: ISHMAEL;03/03/16 1100 Assessment and Plan Problem List 1. Acute pancreatitis Plan -Patient presents with findings of acute pancreatitis -CT scan shows no pancreatic necrosis at this time. -Obtain ultrasound rule out cholelithiasis -IV fluid therapy, nothing by mouth, pain medications, anti-emetics -Check lipid profile -Patient with elevated SIRS score will require close monitoring -Monitor 2. UTI (urinary tract infection) Plan -Rochephin 1 gm IV daily -Urine C&S 3. Abnormal LFTs Status Acute Onset Date Unknown Plan -Elevated LFTs -recheck in AM -Abdominal US 4. Small bowel obstruction Status Acute Onset Date 03/03/16 Plan -Patient with findings of high-grade small bowel obstruction -Surgical admission with follow-up per Dr. Santoyo -NG tube -High-risk in setting of SIRS, pancreatitis, small bowel obstruction Current status: Critical, unstable Anticipated discharge date: Anticipated discharge in 1 week Anticipated discharge placement: Home Patient care time: Time spent in chart review, patient interview, physical exam, CPOE, and care documentation: Greater than 70 minutes Visit to patient today: 1 Complexity of care: High E&M Codes Inpatient Consult: Comp-High/[id number]
[2016-03-03 19:20] VITALS: BP 135/73
--- NOTE | 2016-03-03 19:27 | DIAGNOSTIC IMAGING REPORT ---
PROCEDURE: US ABDOMEN ULTRASOUND-COMPLETE INDICATION: Pancreatitis, R/O cholelithiasis TECHNIQUE: Jackson scale and color Doppler sonographic images of the abdomen were obtained. COMPARISON: CT abdomen/pelvis 03/03/2016 and abdominal ultrasound 09/07/2011. FINDINGS: Prominent head of the pancreas. Body is normal. Tail is obscured by overlying gas. Normal liver and spleen. Cholecystectomy. CBD measures 9 mm. Aorta and IVC are patent. Normal hepatopetal flow in the portal vein. Normal kidneys. Right kidney measures 9.9 cm and left 10 cm. Multiple fluid-filled loops of small bowel. IMPRESSION: 1. Cholecystectomy 2. Prominent head of the pancreas corresponding to suspected pancreatitis seen on today's CT scan
--- NOTE | 2016-03-03 19:45 | NUR ---
NEW ADMIT FROM ED @ 1915. PT BROUGHT UP ON CCU BED WITH WAFFLE IN PLACE. NO DISTRESS NOTED. PT ALERT AND ORIENTED, COOPERATIVE WITH CARE. PT SETTLED IN ROOM, VITALS WNL. ORDERED REVIEWED. TELEMETRY SET UP. BED IN LOWEST POSITION, CALL LIGHT IN REACH, WCTM.
[2016-03-03 20:09] VITALS: BP 135/69
--- NOTE | 2016-03-03 21:40 | NUR ---
DR. MANSFIELD PRESENT ON UNIT. ORDERS CLARIFIED WITH MD REGARDING SHULTZ ORDER AND NG TUBE. MD STATED THAT THE SUHLTZ CATH ORDER CAN BE PRN, AND DOES NOT NEED TO BE PLACED AT THIS TIME. NG TUBE TO LIS. ORDERS WRITTEN IN CHART. WCTM.
[2016-03-03 21:58] VITALS: BP 135/69
[2016-03-03 22:10] VITALS: BP 135/68
[2016-03-03] MEDS ORDERED: VITAMIN D-31000 UNIT PO (22:34)
[2016-03-03 23:13] VITALS: BP 142/77
--- NOTE | 2016-03-03 23:56 | NUR ---
PT ALERT AND ORIENTED, COOPERATIVE WITH CARE. NO DISTRESS NOTED. PT DENIES ANY CHEST PAIN, SOB, NAUSEA, AND VOMITING. VSS. NG TUBE PLACEMENT CHECKED, AND PLACED TO LIS. NG DRAINAGE IS GREEN IN COLOR. PT IS ON TELE, NSR NOTED, HR 83. PT C/O ABD PAIN 5/10 LOCATED ABDOMEN. PT GIVEN PRN 1 MG DILAUDID, TOLERATING WELL. PT EDUCATED DOG BREEDER LIGHT, FALL PRECUATIONS, DIET, AND ACTIVITY. IV INTACT WITH IV FLUIDS INFUSING PER MD ORDER. IS AT THE BEDSIDE, PT EDUCATION. NO OTHER QUESTIONS OR CONERNS AT THIS TIME. CALL LIGHT IN REACH, BED IN LOWEST POSITION, WCTM.
[2016-03-04] VITALS (18 sets, daily range): BP systolic 121–148; BP diastolic 57–99
--- NOTE | 2016-03-04 06:38 | NUR ---
PT SLEPT WELL OVERNIGHT. PRN PAIN MEDICATION GIVEN FOR 5/10 ABD PAIN, AND BACK PAIN. VSS. NSR NOTED, HR 82. NG TUBE IN PLACE, OUTPUT GREEN IN COLOR. TOTAL NG OUTPUT FOR SHIFT WAS 550ML. NO OTHER CONERNS THIS AM. CALL LIGHT IN REACH, BED IN LOWEST POSITION, WCTM.
--- NOTE | 2016-03-04 06:41 | HISTORY AND PHYSICAL ---
ADMITTED: 03/03/2016 CHIEF COMPLAINT: 1. Abdominal pain and vomiting. HISTORY OF PRESENT ILLNESS: The patient is a 50-year-old woman who presented to the emergency department with a one-day history of abdominal pain and vomiting. She was evaluated in the emergency department and found to have a small-bowel obstruction as well as chemical evidence of pancreatitis. This patient has a history of multiple surgeries including originally a hysterectomy that resulted in multiple hernias along the lower midline. She underwent a laparoscopic herniorrhaphy in 2011. Originally her total abdominal hysterectomy and salpingo-oophorectomy and lymph node sampling was carried out on 04/18/2011 for grade 1 endometrial carcinoma with a finding of additional large tubo-ovarian abscesses and a large fibroid uterus. She had an extensive course of antibiotics and had dehiscence of the wound at that time of her gynecologic surgery and subsequently had a [facility] Subsequent to this, the hernia was repaired. MEDICAL/SURGICAL HISTORY: Past medical history includes depression, urinary incontinence, low back pain, arthritis, GERD. Past surgery: Carpal tunnel surgery, hysterectomy, and extensive ventral herniorrhaphy. She has also had upper gastrointestinal endoscopy and lower gastrointestinal endoscopy with findings of a hiatal hernia and then she had a laparoscopic Moses fundoplication in 2013. At the time of her laparoscopic ventral hernia in 09/2011, she also had a cholecystectomy due to cholelithiasis and right upper quadrant pain. MEDICATIONS: 1. Hormone patches. 2. Cyclobenzaprine 3. Celebrex ALLERGIES: 1. NONE TO MEDICATIONS. SOCIAL HISTORY: The patient is a smoker. Does not take alcohol. She works for [employer]. She is single, lives in [place]. FAMILY HISTORY: REVIEW OF SYSTEMS: PHYSICAL EXAMINATION: VITAL SIGNS: Blood pressure 180/106, heart rate of 112, respirations 18, temperature 97. GENERAL: At the current time, the patient is in no distress. She is quite comfortable and feels much better since having insertion of the nasogastric tube. Originally, she had more pain, but now she reports her abdomen is completely pain free. HEENT: Her ears and nose demonstrated no gross external lesions. Eyes are equal. There is no icterus. NECK: Without palpable masses or thyromegaly. CHEST: Clear without wheeze or rales. HEART: Regular, without murmur or gallop. ABDOMEN: Reveals moderate distention but no tight distention. Bowel sounds are active. There is moderate increased tympany. There are no clearly palpable hernias on external examination. LAB/IMAGING: Lab tests were reviewed. Her initial white count 13.9, hemoglobin and hematocrit 17 and 52. Note, the patient has been extensively hydrated since that time and has begun to make more dilute urine. Her initial urine had a specific gravity of greater than 1.03 with 4+ urinary bacteria. Note, that there were 2 positives on her toxicology, including cocaine and cannabinoids. Initial electrolytes were all normal. She has elevations in her liver function tests. Her amylase was 549, lipase 6954. IMPRESSION: 1. Small-bowel obstruction, most likely adhesive. 2. Hyperamylasemia and elevation in lipase. While this is certainly suggests pancreatitis, elevations in amylase or lipase are sometimes caused by small bowel obstructions. PLAN: I have evaluated this patient just now and she has very little in the way of any abdominal pain or distress. She seems to have responded remarkably well to the nasogastric decompression, despite the dramatic appearance on CT scan of her bowel obstruction and gastric distention. In light of these findings, I believe that a course of decompression and IV fluid support is warranted given that I have currently no clinical suspicion of bowel compromise. I will reevaluate tomorrow morning to decide if at some point surgical intervention may prove to be necessary. This patient will be complex as she has had extensive mesh implantation, albeit of an adhesion barrier in nature, but she would do much better if the intervention could occur when her bowels are decompressed and her abdomen is softer which already seems to be the case. I have talked to Dr. Carrillo about her situation and he will evaluate her further from the internal medicine standpoint and provide supportive care. Note that tonight are no beds available and she will have to be domicile in the emergency room. Note also that extensive calls were made and all regional beds are tied up and there are no transfers available.
--- NOTE | 2016-03-04 07:54 | Progress Note ---
Subjective General Note Date: March 04, 2016 Admission Date: March 03, 2016 Hospital Day: 2 PCP: Atul Laguna M.D. Status: Inpatient Advanced Directive: CODE Room: 302 Brief History: The patient is a 50-year-old white female with a significant past medical history of uterine carcinoma, degenerative joint disease, gastroesophageal reflux, depression who presented to [facility] emergency department on the day of admission secondary to complaints of nausea, vomiting, and abdominal pain. [facility] ER evaluation was consistent with acute pancreatitis and small bowel obstruction. Secondary to the above, the patient was admitted by Leo Santoyo M.D. with medical consultation by Harman Carrillo M.D. for further evaluation and treatment. For other history present illness, past medical history, family history, social history, review of systems, and admission physical examination please see the patient's history and physical examination and ER visit note in the patient's medical record. Subjective: The patient states she is doing better today. Abdominal pain improved. No vomiting and improved nausea since placement of NG tube. No requests other than which is take orally. Patient requests: Oral intake. Medications and Allergies Medications Current Medications Sig/Curt Start time Last Medication Dose Route Stop Time Status Admin Ceftriaxone Sodium/ 50 ML DAILY 03/04 0900 AC Dextrose IV Heparin Sodium 5,000 UNITS Q8HR 03/03 2200 AC 03/04 (Porcine) SC 0519 Insulin Human Lispro See Dose Q6HR 03/03 1800 AC Insts (1) SC Acetaminophen 650 MG Q4H PRN 03/03 1545 AC UT Al Hydrox/Mg Hydrox/ 15 ML Q1H PRN 03/03 1545 AC Simethicone PO Atropine Sulfate 0.5 MG Q3MIN PRN 03/03 1545 AC IV Hydromorphone HCl See Dose Q2H PRN 03/03 1545 AC 03/04 Insts (2) IV 0519 Lidocaine HCl See Dose ONCE PRN 03/03 1545 AC Insts (3) IV Magnesium Hydroxide 10 ML DAILY PRN 03/03 1545 AC PO Morphine Sulfate 2 MG Q3M PRN 03/03 1545 AC IV Nitroglycerin 0.4 MG Q5M PRN 03/03 1545 AC SL Ondansetron HCl See Dose Q6H PRN 03/03 1545 AC Insts (4) IV Pantoprazole Sodium 40 MG DAILY@0600 03/03 1545 AC 03/04 IV 0519 Sodium Chloride 1,000 ML ASDIRECTED 03/03 1545 03/04 IV 0528 Dose Instructions: (1)Insulin Human Lispro: LOW DOSE SLIDING SCALE (2)Hydromorphone HCl: 1 - 2 MG (3)Lidocaine HCl: 1.5 MG/KG (4)Ondansetron HCl: 4 - 8 MG Allergies Coded Allergies: NKA (06/17/15) Physical Exam Vital Signs / I&Os Vital Signs Date Time Temp Pulse Resp B/P Pulse O2 O2 Flow FiO2 Ox Delivery Rate 03/04 0711 99.0 80 18 135/77 95 Room Air 03/04 0600 97.9 91 18 144/79 100 Room Air 0.0 03/04 0506 96 18 137/80 100 Room Air 0.0 03/04 0420 97.7 03/04 0400 73 18 134/81 100 Room Air 0.0 03/04 0300 78 18 139/77 98 Room Air 0.0 03/04 0200 97.9 89 18 143/79 100 Room Air 03/04 0110 86 17 140/77 95 03/04 0000 95 17 148/76 97 Room Air 03/03 2313 79 19 142/77 99 Room Air 03/03 2216 99.0 03/03 2210 90 25 135/68 99 Room Air 03/03 2158 97.9 87 19 135/69 100 Room Air 03/03 2009 86 19 135/69 99 Room Air 03/03 2000 Room Air 03/03 1920 99.1 95 16 135/73 98 Room Air I&O 03/04 0000 03/03 1600 03/03 0800 Intake Total Output Total 800 Balance -800 General Appearance Alert, Oriented X3, Cooperative, No acute distress HEENT NG tube present Lungs Clear to auscultation, Normal air movement Cardiovascular Regular rate and rhythm, Normal S1 and S2 Abdomen Normal bowel sounds, Soft, mild diffuse tenderness most significant in the epigastric region. Extremities No cyanosis, No clubbing, No edema Neurological Grossly normal. Psych/Mental Status Mental status normal, Mood normal LAB Results Laboratory Tests 03/04 03/04 03/03 03/03 03/03 0400 0400 1615 1615 1546 Chemistry Plasma Sodium (136 - 145 mmol/L) 143 142 Plasma Potassium (3.5 - 5.1 mmol/L) 4.1 4.2 Plasma Chloride (98 - 107 mmol/L) 108 107 CO2 (Enzymatic) (21 - 32 mmol/L) 26 24 BUN (7 - 18 mg/dL) 16 27 Creatinine (0.6 - 1.3 mg/dL) 0.7 0.9 Est GFR ( Amer) (mL/min) >60 >60 Est GFR (Non-Af Amer) (mL/min) >60 >60 Glucose (70 - 110 mg/dL) 96 105 Lactic Acid Cancelled Plasma Calcium (8.5 - 10.1 mg/dL) 7.9 8.6 Total Bilirubin (0.0 - 1.0 mg/dL) 0.6 AST (15 - 37 U/L) 366 ALT (12 - 78 U/L) 802 Alkaline Phosphatase (46 - 116 U/L) 123 Total Protein (6.4 - 8.2 g/dL) 5.9 Albumin (3.3 - 5.0 g/dL) 2.9 Triglycerides (30 - 200 mg/dL) 58 Cholesterol (140 - 200 mg/dL) 125 LDL Cholesterol, Calc (mg/dL) 46 HDL Cholesterol (32 - 96 mg/dL) 68 LDL/HDL Ratio 0.7 Cholesterol/HDL Ratio 1.8 Coronary Risk Interp (0.4 - 1.0) 0.4 Amylase (25 - 115 U/L) 218 Lipase (73 - 393 U/L) 740 Coagulation INR (0.8 - 1.2) 1.1 APTT (24 - 34 SECONDS) 24 Hematology WBC (4.5 - 11.5 K/uL) 4.7 RBC (4.00 - 5.20 M/uL) 4.76 Hgb (12.0 - 16.0 gm/dL) 13.8 Hct (36.0 - 46.0 %) 42.6 MCV (80 - 100 fL) 90 MCH (26 - 34 pg) 29 RDW (11.6 - 14.8 %) 13.2 Neut % (Auto) (50 - 75 %) 76 Lymph % (Auto) (25 - 40 %) 14 [place] % (Auto) (3 - 14 %) 5 Eos % (Auto) (0 - 4 %) 1 Baso % (Auto) (0 - 2 %) 0 Band Neutrophils % (0 - 8 %) 4 Metamyelocytes % (0 - 1 %) 0 Myelocytes (0 - 1 %) 0 Other Cell Type 0 Plt Count, EDTA (150 - 400 K/uL) 202 Anisocytosis (manual) 1+ PUBS MCHC (31 - 37 g/dL) 33 Toxicology Urine Opiates Screen Cancelled Urine Methadone Screen Cancelled Ur Barbiturates Screen Cancelled U Amphetamin/Meth Scrn Cancelled MDMA (Ecstasy) Screen Cancelled U Benzodiazepines Scrn Cancelled Urine Cocaine Screen Cancelled U Cannabinoids Screen Cancelled 03/03 03/03 03/03 03/03 1514 1029 1010 1010 Chemistry Plasma Sodium (136 - 145 mmol/L) 141 Plasma Potassium (3.5 - 5.1 mmol/L) 4.0 Plasma Chloride (98 - 107 mmol/L) 99 CO2 (Enzymatic) (21 - 32 mmol/L) 22 BUN (7 - 18 mg/dL) 32 Creatinine (0.6 - 1.3 mg/dL) 1.5 Est GFR ( Amer) (mL/min) 47.16 Est GFR (Non-Af Amer) (mL/min) 38.91 Glucose (70 - 110 mg/dL) 316 Lactic Acid (0.4 - 2.0 mmol/L) 1.3 5.5 Plasma Calcium (8.5 - 10.1 mg/dL) 10.0 Plasma Magnesium (1.8 - 2.4 mg/dL) 2.0 Total Bilirubin (0.0 - 1.0 mg/dL) 0.9 AST (15 - 37 U/L) 1220 ALT (12 - 78 U/L) 875 Alkaline Phosphatase (46 - 116 U/L) 161 Creatine Kinase (24 - 260 U/L) 121 Troponin (0.00 - 1.5 ng/mL) <0.05 B-Natriuretic Peptide (5 - 100 pg/ml) 19.0 Total Protein (6.4 - 8.2 g/dL) 7.9 Albumin (3.3 - 5.0 g/dL) 4.5 Amylase (25 - 115 U/L) 549 Lipase (73 - 393 U/L) 6954 Hematology WBC (4.5 - 11.5 K/uL) 13.9 RBC (4.00 - 5.20 M/uL) 5.90 Hgb (12.0 - 16.0 gm/dL) 17.3 Hct (36.0 - 46.0 %) 52.9 MCV (80 - 100 fL) 90 MCH (26 - 34 pg) 29 RDW (11.6 - 14.8 %) 13.3 Neut % (Auto) (50 - 75 %) 94.6 Lymph % (Auto) (25 - 40 %) 4.0 [place] % (Auto) (3 - 14 %) 1.2 Eos % (Auto) (0 - 4 %) 0 Baso % (Auto) (0 - 2 %) 0.2 Plt Count, EDTA (150 - 400 K/uL) 276 PUBS MCHC (31 - 37 g/dL) 33 03/03 03/03 0950 0906 Chemistry Amylase Cancelled Lipase Cancelled Toxicology Urine Opiates Screen (NEGATIVE) NEGATIVE Urine Methadone Screen (NEGATIVE) NEGATIVE Ur Barbiturates Screen (NEGATIVE) NEGATIVE U Amphetamin/Meth Scrn (NEGATIVE) NEGATIVE MDMA (Ecstasy) Screen (NEGATIVE) NEGATIVE U Benzodiazepines Scrn (NEGATIVE) NEGATIVE Urine Cocaine Screen (NEGATIVE) POSITIVE U Cannabinoids Screen (NEGATIVE) POSITIVE Urines Urine Color NADINE Urine Appearance CLOUDY Urine pH (5.0 - 8.0) 5.5 Ur Specific [place] (1.010 - 1.030) >= 1.030 Urine Protein (NEGATIVE) 2+ Urine Ketones (NEGATIVE) NEGATIVE Urine Blood (NEGATIVE) 2+ Urine Nitrite (NEGATIVE) NEGATIVE Ur Bilirubin Confirm (NEGATIVE) NEGATIVE Urine Urobilinogen (0.2 - 1.0 EU/dL) 1.0 Ur Leukocyte Esterase (NEGATIVE) NEGATIVE Urine RBC (0 - 1 rbc/hpf) NONE SEEN Urine WBC (0 - 1 wbc/hpf) 3-5 Ur Epithelial Cells (0 - 5 EPI/hpf) 10-15 Urine Bacteria (NONE SEEN) MANY (4+) Urine Glucose (NEGATIVE) TRACE Urine Comment CULTURE INDICATED Microbiology Date/Time Procedure - Status Source Growth 03/04 0001 MRSA Screen - RECD NASAL 03/03 1043 Blood Culture - RECD BLOOD 03/03 0950 Urine Culture - RECD URINE CC Imaging Abdominal Ultrasound IMPRESSION: 1. Cholecystectomy 2. Prominent head of the pancreas corresponding to suspected pancreatitis seen on today's CT scan Dictated by: AI BOYER MD D: ISHMAEL;03/03/16 1926 Ultrasound reviewed-03/04/2016 [facility] Assessment and Plan Problem List 1. Small bowel obstruction Status Acute Onset Date 03/03/16 Plan -Decreased NG tube drainage -No BM -Continue NG tube -Gastrografin small bowel follow-through in a.m. per surgical recommendations -Follow up with general surgery-Dr. Santoyo 2. Acute pancreatitis Plan -Abdominal pain improved, persistent requirement for IV narcotic therapy -Amylase/lipase improving -Continue nothing by mouth status with IV fluid therapy, pain meds, antiemetics -Monitor -CT scan shows mild pancreatitis -Ultrasound shows prominence of pancreatic head consistent with pancreatitis. 3. UTI (urinary tract infection) Plan -Patient with findings of UTI -WBC improved-normal -Rocephin 1 g IV daily -Await urine C&S-preliminary report shows gram-negative candelario -Monitor 4. Dehydration Plan -Improved -BUN/creatinine- normal -BUN/creatinine: 16/0.7 -Continue IV fluid therapy -Monitor 5. Abnormal LFTs Status Acute Onset Date Unknown Plan -LFTs improved -AST 366 (1220-03/03/2016) -ALT 802 (875-03/03/2016) -Monitor -Ultrasound unremarkable, CT scan unremarkable Current status: Fair, improved Anticipated discharge date: Anticipated discharge in 2-3 days Anticipated discharge placement: Home Patient care time: Time spent in chart review, patient interview, physical exam, CPOE, and care documentation: 35 minutes Visit to patient today: 2 Complexity of care: High E&M Codes Rounding: Inpt-High/[id number]
--- NOTE | 2016-03-04 11:36 | Progress Note ---
Subjective General Pt. feels a lot better, she has no abdominal pain. She has not passed gas of stool. She feels much less bloated and distended. Physical Exam Vital Signs / I&Os Vital Signs Date Time Temp Pulse Resp B/P Pulse O2 O2 Flow FiO2 Ox Delivery Rate 03/04 1013 98.1 79 21 121/76 98 Room Air 03/04 0851 124/78 03/04 0711 99.0 80 18 135/77 95 Room Air 03/04 0600 97.9 91 18 144/79 100 Room Air 0.0 03/04 0506 96 18 137/80 100 Room Air 0.0 03/04 0420 97.7 03/04 0400 73 18 134/81 100 Room Air 0.0 03/04 0300 78 18 139/77 98 Room Air 0.0 03/04 0200 97.9 89 18 143/79 100 Room Air 03/04 0110 86 17 140/77 95 03/04 0000 95 17 148/76 97 Room Air 03/03 2313 79 19 142/77 99 Room Air 03/03 2216 99.0 03/03 2210 90 25 135/68 99 Room Air 03/03 2158 97.9 87 19 135/69 100 Room Air 03/03 2009 86 19 135/69 99 Room Air 03/03 2000 Room Air 03/03 1920 99.1 95 16 135/73 98 Room Air I&O 03/03 0800 03/03 1600 03/04 0000 Intake Total Output Total 800 Balance -800 General Appearance Alert, Oriented X3, Cooperative, No acute distress HEENT Normal exam Lungs Normal exam Abdomen Normal bowel sounds, Soft, No tenderness, No guarding, There is still some mild distension and increased tympany. I do feel any external hernias even though the pt. reported an intermittent bulge in the left groin. Assessment and Plan Problem List 1. SMALL BOWEL OBSTRUCTION HIGH GRADE Plan appears to be improved without evidence of bowel compromise. Plan: decompress and do gastro graffin study via NG tube tommorow. While this pt. had elevated lipase and amylase, they have decreased rapidly and may be secondary to SBO rather than pancreatitis. Meds/Labs/Orders Medication List: Current Medications Sig/Curt Start time Last Medication Dose Route Stop Time Status Admin Ceftriaxone Sodium/ 50 ML DAILY 03/04 0900 AC 03/04 Dextrose IV 0845 Heparin Sodium 5,000 UNITS Q8HR 03/03 2200 AC 03/04 (Porcine) SC 0519 Insulin Human Lispro See Dose Q6HR 03/03 1800 AC Insts (1) SC Acetaminophen 650 MG Q4H PRN 03/03 1545 AC NH Al Hydrox/Mg Hydrox/ 15 ML Q1H PRN 03/03 1545 AC Simethicone PO Atropine Sulfate 0.5 MG Q3MIN PRN 03/03 1545 AC IV Hydromorphone HCl See Dose Q2H PRN 03/03 1545 AC 03/04 Insts (2) IV 0519 Lidocaine HCl See Dose ONCE PRN 03/03 1545 AC Insts (3) IV Magnesium Hydroxide 10 ML DAILY PRN 03/03 1545 AC PO Morphine Sulfate 2 MG Q3M PRN 03/03 154 AC IV Nitroglycerin 0.4 MG Q5M PRN 03/03 1545 AC SL Ondansetron HCl See Dose Q6H PRN 03/03 1545 AC Insts (4) IV Pantoprazole Sodium 40 MG DAILY@0600 03/03 1545 AC 03/04 IV 0519 Sodium Chloride 1,000 ML ASDIRECTED 03/03 1545 AC 03/04 IV 0951 Dose Instructions: (1)Insulin Human Lispro: LOW DOSE SLIDING SCALE (2)Hydromorphone HCl: 1 - 2 MG (3)Lidocaine HCl: 1.5 MG/KG (4)Ondansetron HCl: 4 - 8 MG Lab Results: Laboratory Tests 03/03 03/03 03/03 03/03 03/04 1514 1546 1615 1615 0400 Chemistry Plasma Sodium (136 - 145 mmol/L) 142 143 Plasma Potassium (3.5 - 5.1 mmol/L) 4.2 4.1 Plasma Chloride (98 - 107 mmol/L) 107 108 CO2 (Enzymatic) (21 - 32 mmol/L) 24 26 BUN (7 - 18 mg/dL) 27 16 Creatinine (0.6 - 1.3 mg/dL) 0.9 0.7 Est GFR ( Amer) (mL/min) >60 >60 Est GFR (Non-Af Amer) (mL/min) >60 >60 Glucose (70 - 110 mg/dL) 105 96 Lactic Acid (0.4 - 2.0 mmol/L) 1.3 Cancelled Plasma Calcium (8.5 - 10.1 mg/dL) 8.6 7.9 Total Bilirubin (0.0 - 1.0 mg/dL) 0.6 AST (15 - 37 U/L) 366 ALT (12 - 78 U/L) 802 Alkaline Phosphatase (46 - 116 U/L) 123 Total Protein (6.4 - 8.2 g/dL) 5.9 Albumin (3.3 - 5.0 g/dL) 2.9 Triglycerides (30 - 200 mg/dL) 58 Cholesterol (140 - 200 mg/dL) 125 LDL Cholesterol, Calc (mg/dL) 46 HDL Cholesterol (32 - 96 mg/dL) 68 LDL/HDL Ratio 0.7 Cholesterol/HDL Ratio 1.8 Coronary Risk Interp (0.4 - 1.0) 0.4 Coagulation INR (0.8 - 1.2) 1.1 APTT (24 - 34 SECONDS) 24 Hematology WBC (4.5 - 11.5 K/uL) 4.7 RBC (4.00 - 5.20 M/uL) 4.76 Hgb (12.0 - 16.0 gm/dL) 13.8 Hct (36.0 - 46.0 %) 42.6 MCV (80 - 100 fL) 90 MCH (26 - 34 pg) 29 RDW (11.6 - 14.8 %) 13.2 Neut % (Auto) (50 - 75 %) 76 Lymph % (Auto) (25 - 40 %) 14 [place] % (Auto) (3 - 14 %) 5 Eos % (Auto) (0 - 4 %) 1 Baso % (Auto) (0 - 2 %) 0 Band Neutrophils % (0 - 8 %) 4 Metamyelocytes % (0 - 1 %) 0 Myelocytes (0 - 1 %) 0 Other Cell Type 0 Plt Count, EDTA (150 - 400 K/uL) 202 Anisocytosis (manual) 1+ PUBS MCHC (31 - 37 g/dL) 33 Toxicology Urine Opiates Screen Cancelled Urine Methadone Screen Cancelled Ur Barbiturates Screen Cancelled U Amphetamin/Meth Scrn Cancelled MDMA (Ecstasy) Screen Cancelled U Benzodiazepines Scrn Cancelled Urine Cocaine Screen Cancelled U Cannabinoids Screen Cancelled 03/04 0400 Chemistry Amylase (25 - 115 U/L) 218 Lipase (73 - 393 U/L) 740 Microbiology Date/Time Procedure - Status Source Growth 03/04 0001 MRSA Screen - RECD NASAL
--- NOTE | 2016-03-04 19:12 | ED MED RECONCILIATION SUMMARY ---
Patient: LEAH MARTEL Medication Reconciliation Report [facility] VisitID: [id number] [address] [place] [address] 50y, F Registration Date/Time: 03/03/2016 Weight: 61.2 kg Height/Length: 65 in. BMI: 22.5 ALLERGIES: No Known Drug Allergy The patient's Home Medications are listed below: THE FOLLOWING MEDICATIONS NEED TO BE RECONCILED: CeleBREX Oral Cyclobenzaprine HCl Oral Hormone patch The source(s) of the original Home Medication information: Not obtained. The following Medications were given to the patient in the Emergency Department: IV NS IV Fluids bolus 0, then 1000 mL/hr, administered: 03/03/2016 10:10:00 AM Dilaudid [IVP] IVP 0.5 mg, administered: 03/03/2016 10:33:00 AM Reglan [IVP] IVP 10 mg, administered: 03/03/2016 10:33:00 AM PROTONIX 40MG [IVP] IVP 40 mg, administered: 03/03/2016 10:23:00 AM Zofran [IVP] IVP 4 mg, administered: 03/03/2016 10:34:00 AM Ceftriaxone [IVPB] IVPB bolus 0, then 1 gm 150 mL/hr, administered: 03/03/2016 10:53:00 AM Dilaudid [IVP] IVP 0.5 mg, administered: 03/03/2016 10:56:00 AM IV NS IV Fluids bolus 0, then 1000 mL/hr, administered: 03/03/2016 12:06:00 PM The following Medications were prescribed to the patient: None.
--- NOTE | 2016-03-04 19:12 | ED MED RECONCILIATION SUMMARY ---
Patient: LEAH MARTEL Medication Reconciliation Report [facility] VisitID: [id number] [address] [place] [address] 50y, F Registration Date/Time: 03/03/2016 Weight: 61.2 kg Height/Length: 65 in. BMI: 22.5 ALLERGIES: No Known Drug Allergy The patient's Home Medications are listed below: THE FOLLOWING MEDICATIONS NEED TO BE RECONCILED: CeleBREX Oral Cyclobenzaprine HCl Oral Hormone patch The source(s) of the original Home Medication information: Not obtained. The following Medications were given to the patient in the Emergency Department: IV NS IV Fluids bolus 0, then 1000 mL/hr, administered: 03/03/2016 10:10:00 AM Dilaudid [IVP] IVP 0.5 mg, administered: 03/03/2016 10:33:00 AM Reglan [IVP] IVP 10 mg, administered: 03/03/2016 10:33:00 AM PROTONIX 40MG [IVP] IVP 40 mg, administered: 03/03/2016 10:23:00 AM Zofran [IVP] IVP 4 mg, administered: 03/03/2016 10:34:00 AM Ceftriaxone [IVPB] IVPB bolus 0, then 1 gm 150 mL/hr, administered: 03/03/2016 10:53:00 AM Dilaudid [IVP] IVP 0.5 mg, administered: 03/03/2016 10:56:00 AM IV NS IV Fluids bolus 0, then 1000 mL/hr, administered: 03/03/2016 12:06:00 PM The following Medications were prescribed to the patient: None.
--- NOTE | 2016-03-04 19:12 | ED MAR SUMMARY ---
..... Medication Administration Record [facility] [address] [place] [address] Patient: LEAH MARTEL Visit ID: [id number] 50y, F Weight: 61.2 kg Height/Length: 65 in BMI: 22.5 ALLERGIES: No Known Drug Allergy Start 10:10 03/03/2016 Rashida Diane R.N., Stop 12:05 03/03/2016 Sukumar Hoang R.N. Medication Administered: IV NS (SALINE), Dose: IV Fluids, Rate: 1000 mL/hr, Dispensed: 1000 mL bag, Site: #1 right forearm. Medication Ordered: IV NS : initial bolus 1000 mL (1000 mL/hr), then 500 mL/hr for X2 (NOW). Given 10:23 03/03/2016 Sukumar Hoang R.N. Medication Administered: PROTONIX 40MG [IVP] (PANTOPRAZOLE SODIUM), Dose: 40 mg IVP over 2 minute(s), Site: #1 right forearm. Medication Ordered: Protonix IVP 40mg 40 mg (Mix in NS 10ml over 2min). Given 10:33 03/03/2016 Sukumar Hoang R.N. Medication Administered: REGLAN [IVP] (METOCLOPRAMIDE HCL), Dose: 10 mg IVP over 2 minute(s), Site: #1 right forearm. Medication Ordered: Reglan IV 10 mg (NOW). Given 10:33 03/03/2016 Sukumar Hoang R.N. Medication Administered: DILAUDID [IVP] (HYDROMORPHONE HCL PF), Dose: 0.5 mg IVP over 2 minute(s), Site: #1 right forearm. Medication Ordered: Dilaudid IV 0.5 mg (may repeat x 1 prn pain). Given 10:34 03/03/2016 Sukumar Hoang R.N. Medication Administered: ZOFRAN [IVP] (ONDANSETRON HCL), Dose: 4 mg IVP over 2 minute(s), Site: #1 right forearm. Medication Ordered: Zofran IV 4 mg (NOW). Start 10:53 03/03/2016 Sukumar Hoang R.N., Stop 11:25 03/03/2016 Alberto Quiroz R.N. Medication Administered: CEFTRIAXONE [IVPB], Dose: 1 gm IVPB over 20 minute(s), Rate: 150 mL/hr, Dispensed: 50 mL bag, Site: #1 right forearm. Medication Ordered: Ceftriaxone IV 1 gm/50mL (NOW). Given 10:56 03/03/2016 Sukumar Hoang R.N. Medication Administered: DILAUDID [IVP] (HYDROMORPHONE HCL PF), Dose: 0.5 mg IVP over 1 minute(s), Site: #1 right forearm. Medication Ordered: Dilaudid IV 0.5 mg (may repeat x 1 prn pain). Start 12:06 03/03/2016 Sukumar Hoang R.N., Stop 18:54 03/03/2016 Sukumar Hoang R.N. Medication Administered: IV NS (SALINE), Dose: IV Fluids over 1 hour(s), Rate: 1000 mL/hr, Dispensed: 1000 mL bag, Site: #1 right forearm. Medication Ordered: IV NS : initial bolus 1000 mL (1000 mL/hr), then 500 mL/hr for X2 (NOW).
--- NOTE | 2016-03-04 19:12 | ED MAR SUMMARY ---
..... Medication Administration Record [facility] [address] [place] [address] Patient: LEAH MARTEL Visit ID: [id number] 50y, F Weight: 61.2 kg Height/Length: 65 in BMI: 22.5 ALLERGIES: No Known Drug Allergy Start 10:10 03/03/2016 Rashida Diane R.N., Stop 12:05 03/03/2016 Sukumar Hoang R.N. Medication Administered: IV NS (SALINE), Dose: IV Fluids, Rate: 1000 mL/hr, Dispensed: 1000 mL bag, Site: #1 right forearm. Medication Ordered: IV NS : initial bolus 1000 mL (1000 mL/hr), then 500 mL/hr for X2 (NOW). Given 10:23 03/03/2016 Sukumar Hoang R.N. Medication Administered: PROTONIX 40MG [IVP] (PANTOPRAZOLE SODIUM), Dose: 40 mg IVP over 2 minute(s), Site: #1 right forearm. Medication Ordered: Protonix IVP 40mg 40 mg (Mix in NS 10ml over 2min). Given 10:33 03/03/2016 Sukumar Hoang R.N. Medication Administered: REGLAN [IVP] (METOCLOPRAMIDE HCL), Dose: 10 mg IVP over 2 minute(s), Site: #1 right forearm. Medication Ordered: Reglan IV 10 mg (NOW). Given 10:33 03/03/2016 Sukumar Hoang R.N. Medication Administered: DILAUDID [IVP] (HYDROMORPHONE HCL PF), Dose: 0.5 mg IVP over 2 minute(s), Site: #1 right forearm. Medication Ordered: Dilaudid IV 0.5 mg (may repeat x 1 prn pain). Given 10:34 03/03/2016 Sukumar Hoang R.N. Medication Administered: ZOFRAN [IVP] (ONDANSETRON HCL), Dose: 4 mg IVP over 2 minute(s), Site: #1 right forearm. Medication Ordered: Zofran IV 4 mg (NOW). Start 10:53 03/03/2016 Sukumar Hoang R.N., Stop 11:25 03/03/2016 Alberto Quiroz R.N. Medication Administered: CEFTRIAXONE [IVPB], Dose: 1 gm IVPB over 20 minute(s), Rate: 150 mL/hr, Dispensed: 50 mL bag, Site: #1 right forearm. Medication Ordered: Ceftriaxone IV 1 gm/50mL (NOW). Given 10:56 03/03/2016 Sukumar Hoang R.N. Medication Administered: DILAUDID [IVP] (HYDROMORPHONE HCL PF), Dose: 0.5 mg IVP over 1 minute(s), Site: #1 right forearm. Medication Ordered: Dilaudid IV 0.5 mg (may repeat x 1 prn pain). Start 12:06 03/03/2016 Sukumar Hoang R.N., Stop 18:54 03/03/2016 Sukumar Hoang R.N. Medication Administered: IV NS (SALINE), Dose: IV Fluids over 1 hour(s), Rate: 1000 mL/hr, Dispensed: 1000 mL bag, Site: #1 right forearm. Medication Ordered: IV NS : initial bolus 1000 mL (1000 mL/hr), then 500 mL/hr for X2 (NOW).
--- NOTE | 2016-03-04 19:12 | ED DISCHARGE INSTRUCTIONS ---
Patient: LEAH MARTEL General Instructions [facility] VisitID: [id number] [address] [place] [address] 50y, F Registration Date/Time: 03/03/2016 Complete small bowel obstruction associated with intestinal bands / adhesions (High Grade; with history of prior suprapubic area hernia and midline ventral wall herniorrhaphy and other midline hernia). Moderate dehydration. Acute idiopathic pancreatitis. New onset, poorly controlled type 2 diabetes with hyperglycemia. No coma. Occasional substance abuse- tobacco (cigarettes), marijuana, cocaine with drug induced mood disorder. Abnormal liver function test. Lactic acidosis. (Electronically signed by Leo Leiva DO 03/03/2016 20:43)
--- NOTE | 2016-03-04 19:12 | ED DISCHARGE INSTRUCTIONS ---
Patient: LEAH MARTEL General Instructions [facility] VisitID: [id number] [address] [place] [address] 50y, F Registration Date/Time: 03/03/2016 Complete small bowel obstruction associated with intestinal bands / adhesions (High Grade; with history of prior suprapubic area hernia and midline ventral wall herniorrhaphy and other midline hernia). Moderate dehydration. Acute idiopathic pancreatitis. New onset, poorly controlled type 2 diabetes with hyperglycemia. No coma. Occasional substance abuse- tobacco (cigarettes), marijuana, cocaine with drug induced mood disorder. Abnormal liver function test. Lactic acidosis. (Electronically signed by Leo Leiva DO 03/03/2016 20:43)
--- NOTE | 2016-03-04 19:29 | NUR ---
Patient has been alert and oriented throughout shift. Gave pain medication as ordered, no complaints of nausea or vomiting. Patient ambulates to bathroom, only requires assistance to unplugged from monitoring devices.
--- NOTE | 2016-03-04 20:52 | NUR ---
PT RESTING IN BED, NO DISTRESS NOTED. PT ABLE TO MAKE NEEDS KNOWN WITH CALL LIGHT. PT DENIES ANY CHEST PAIN, SOB, NAUSEA, AND VOMITING. NG IN PLACE, DRAINAGE IS GREEN IN COLOR. PT NEEDS MINIMAL ASSIST TO BR, TOLERATES WELL. PT STATES ABD PAIN IS 4/10, NO PAIN MEDICATION NEEDED AT THIS TIME. VSS STABLE, PT NOW AC TELE STATUS. BED IN LOWEST POSITION, CALL LIGHT IN REACH, WCTM.
[2016-03-05 02:25] VITALS: BP 116/68
--- NOTE | 2016-03-05 06:53 | NUR ---
DR. MACHUCA INFORMED OF PATIENTS AM GLUCOSE OF 61. TO PLACE ORDER IN CPOE. TM.
[2016-03-05 07:54] VITALS: BP 109/67
--- NOTE | 2016-03-05 08:01 | Progress Note ---
Subjective General pT W/SBP. Min nausea w/o Vomiting since NG in. No flatus or BM. Mild int pain. Constitutional Malaise. Denies: Fever, Chills, Sweats, Weakness, Other. Eyes Denies: Pain, Vision Change, Conjunctival Inflammation, Eyelid Inflammation, Redness, Other. ENT Denies: Ear Pain, Ear Discharge, Nose Pain, Nasal Discharge, Nasal Congestion, Mouth Pain, Mouth Swelling, Throat Pain, Throat Swelling, Other. Respiratory Denies: Cough, Dry, SOB w/exertion, Wheezing, Hemoptysis, Pleuritic Pain, Sputum , Other. Cardiovascular Denies: Chest Pain, Palpitations, Orthopnea, PND, Edema, Light-headedness, Other. Gastrointestinal Nausea, Abdominal Pain, Constipation. Denies: Vomiting, Diarrhea, Melena, Hematochezia. Genitourinary Denies: Dysuria, Frequency, Incontinence, Hematuria, Retention, Other. Musculoskeletal Denies: Neck Pain, Shoulder Pain, Arm Pain, Back Pain, Hand Pain, Leg Pain, Foot Pain, Other. Skin Denies: Rash, Lesions, Jaundice, Bruising, Other. Neurological Denies: Weakness, Numbness, Incoordination, Change in speech, Confusion, Seizures, Other. Physical Exam Vital Signs / I&Os Vital Signs Date Time Temp Pulse Resp B/P Pulse O2 O2 Flow FiO2 Ox Delivery Rate 03/05 0754 98.2 69 17 109/67 97 Room Air 03/05 0225 77 17 116/68 96 Room Air 03/04 2123 99.0 82 17 127/70 96 Room Air 03/04 1954 80 20 139/75 100 Room Air 03/04 1945 Room Air 03/04 1829 99.1 68 17 135/99 95 Room Air 03/04 1706 99.3 73 17 129/78 96 Room Air 03/04 1608 99.1 82 17 129/80 98 Room Air 03/04 1500 99.1 100 17 121/76 100 Room Air 03/04 1406 97.5 85 17 134/77 99 Room Air 03/04 1301 100 20 123/57 99 Room Air 03/04 1143 85 19 96 Room Air 03/04 1013 98.1 79 21 121/76 98 Room Air 03/04 0851 124/78 I&O 03/04 0800 03/04 1600 03/05 0000 Intake Total 1937 0 2719 Output Total 700 1050 950 Balance 1237 -1050 1769 General Appearance Alert, Oriented X3, Cooperative, No acute distress HEENT Normal exam, Atraumatic, EOMI, Moist mucous membranes Lungs Normal exam, Clear to auscultation Breasts Symmetric Neck Normal exam, Supple, No JVD, No masses, No lymphadenopathy Cardiovascular Normal exam, Regular rate and rhythm, No murmurs, gallops, rubs Abdomen Soft, No rebound, Rare BS, soft but mild distended and diffusely tender Extremities Normal exam Skin No Rashes, No Breakdown, No Significant Lesions Neurological Normal exam, No lateralizing signs Psych/Mental Status Mental status normal, Mood normal LAB Results Laboratory Tests 03/05 0515 Chemistry Plasma Sodium (136 - 145 mmol/L) 141 Plasma Potassium (3.5 - 5.1 mmol/L) 3.5 Plasma Chloride (98 - 107 mmol/L) 106 CO2 (Enzymatic) (21 - 32 mmol/L) 23 BUN (7 - 18 mg/dL) 7 Creatinine (0.6 - 1.3 mg/dL) 0.6 Est GFR ( Amer) (mL/min) >60 Est GFR (Non-Af Amer) (mL/min) >60 Glucose (70 - 110 mg/dL) 61 Plasma Calcium (8.5 - 10.1 mg/dL) 8.0 Total Bilirubin (0.0 - 1.0 mg/dL) 0.5 AST (15 - 37 U/L) 92 ALT (12 - 78 U/L) 393 Alkaline Phosphatase (46 - 116 U/L) 91 Total Protein (6.4 - 8.2 g/dL) 5.5 Albumin (3.3 - 5.0 g/dL) 2.5 Amylase (25 - 115 U/L) 55 Hematology WBC (4.5 - 11.5 K/uL) 6.3 RBC (4.00 - 5.20 M/uL) 4.11 Hgb (12.0 - 16.0 gm/dL) 12.1 Hct (36.0 - 46.0 %) 37.1 MCV (80 - 100 fL) 90 MCH (26 - 34 pg) 29 RDW (11.6 - 14.8 %) 13.5 Neut % (Auto) (50 - 75 %) Pending Lymph % (Auto) (25 - 40 %) Pending [place] % (Auto) (3 - 14 %) Pending Band Neutrophils % (0 - 8 %) Pending Plt Count, EDTA (150 - 400 K/uL) 154 PUBS MCHC (31 - 37 g/dL) 33 Assessment and Plan Problem List 1. SMALL BOWEL OBSTRUCTION HIGH GRADE Plan NG sucking. Gastrograffin UGI today. Primary care per surgery. 2. Acute pancreatitis Plan Normal amylase today 3. UTI (urinary tract infection) Plan Probably contaminant awaiting UC result. 4. Drug abuse, cocaine type Plan To be discussed E&M Codes Rounding: Inpt-Moderate/[id number]
--- NOTE | 2016-03-05 10:49 | NUR ---
PT DOWN IN CT AT THIS TIME FOR GASTROGRAFFIN STUDY. MEDICATED WITH IV DILAUDID FOR PAIN, WITH RELIEF. UP, AMBULATING INDEPENDENTLY WITH STEADY GAIT. NG TUBE IN PLACE, CLAMPED FOR STUDY. ABDOMEN SOFTLY DISTENDED, BTX4, NO FLATUS. WCTM.
[2016-03-05 11:18] VITALS: BP 127/77
[2016-03-05 14:22] VITALS: BP 154/87
--- NOTE | 2016-03-05 15:02 | NUR ---
NUTRITION NOTE: Pt admitted with dx/o comlete small bowel obstruction and acute pancreatitis. Pt is downstairs getting a gastrographin. Rev'd pt hx. Per nsg depending on results from this procedure, pt may be able to start on clear liquids. RD to follow up and monitor nutrition idices, oral nutrition progress and f/u with complete assessment per protocol.
--- NOTE | 2016-03-05 16:25 | Progress Note ---
Subjective General Pt. feels a little worse, her NG is clamped for the gastrograffin study. Physical Exam Vital Signs / I&Os Vital Signs Date Time Temp Pulse Resp B/P Pulse O2 O2 Flow FiO2 Ox Delivery Rate 03/05 1422 98.4 69 19 154/87 98 03/05 1118 97.7 73 19 127/77 97 Room Air 03/05 0906 Room Air 03/05 0754 98.2 69 17 109/67 97 Room Air 03/05 0225 77 17 116/68 96 Room Air 03/04 2123 99.0 82 17 127/70 96 Room Air 03/04 1954 80 20 139/75 100 Room Air 03/04 1945 Room Air 03/04 1829 99.1 68 17 135/99 95 Room Air 03/04 1706 99.3 73 17 129/78 96 Room Air I&O 03/04 0800 03/04 1600 03/05 0000 Intake Total 1937 0 2719 Output Total 700 1050 950 Balance 1237 -1050 1769 General Appearance Alert, Oriented X3, Cooperative, Mild distress HEENT PERRLA, EOMI Abdomen No guarding, moderately distended and tympanic with localized guarding. Assessment and Plan Problem List 1. SMALL BOWEL OBSTRUCTION HIGH GRADE Plan Will start PICC and TPN for nutritional support. The gastrograffin study is not yet complete but my review of the first films show that the bowel is still fairly dilated and that progress is slow. This may require a surgical intervention if the gastrograffin fails to clear. Recommend we return her to NG suction once study is complete. Her WBC continues to be normal. Will also repeat her lipase.
--- NOTE | 2016-03-05 16:48 | NUR ---
NUTRITION CONSULT/TPN: Pt s/p gastrographin and based on findings surgeon has ordered TPN. Pharmacy alerted of orders to come. Wts: 62.6 kg Ht: 65" IBW: 59-65 BMI: 23 Est Kcals: ~9602-8809 kcals per day (25-30 kcals per kg) Est Pro: ~63-82 g per day (1.0-1.3 g per kg) Est Fluids: ~1890 mls per day (30 mls per kg) Rec: clinimix E 5/20% (AA/Dextrose) to run at 65 mls per hour continuous and daily lipids 250 mls 20% to provide pt with ~1872 kcals and 78 g protein = 29.7 kcals per kg = 1.23 g protein per kg TPN labs to be ordered per protocol. RD to follow closely, monitor nutrition indices, wts, labs.
[2016-03-05 18:39] VITALS: BP 163/87
--- NOTE | 2016-03-05 18:50 | NUR ---
REC'D TC FROM DR. RIVAS. REPORTS THAT PT IS FULLY OBSTRUCTED, AND SHOULD BE PLACED BACK TO INTERMITTENT SUCTION VIA NG TUBE. DR. GRULLON AWARE.
--- NOTE | 2016-03-05 19:01 | DIAGNOSTIC IMAGING REPORT ---
PROCEDURE: XR SBFT WITH GASTROGRAFIN INDICATION: Follow-up small bowel obstruction. TECHNIQUE: Single contrast study. Fluoroscopy time was not utilized. 240 ml of Gastrografin contrast material infused through the patient's existing nasogastric tube, and images acquired over 8.5 hour time interval. COMPARISON: Comparison is made to CT abdomen and pelvis on 03/03/2016. FINDINGS: Seven images. Preliminary image demonstrates mildly dilated proximal small bowel loops. There are multiple surgical coils overlying the pelvis compatible with prior abdominal hernia repair. At 8.5 hours there is a persistent complete distal small bowel obstruction. This is associated marked distention of the stomach with moderate distention of small bowel loops. IMPRESSION: 1. Complete small bowel obstruction and 8.5 hours. 2. Findings discussed with Dr. Santoyo. 3. Findings were called to the floor with instructions to place the patient back on NG suction (per Dr. Santoyo).
[2016-03-06] VITALS (10 sets, daily range): BP systolic 99–117; BP diastolic 60–79
--- NOTE | 2016-03-06 07:31 | Progress Note ---
Subjective General Pt. reports no stool output after gastrograffin, just lots of gurgling. She is back on NG suction with high volume production. There is no new pain in the abdomen. Physical Exam Vital Signs / I&Os Vital Signs Date Time Temp Pulse Resp B/P Pulse O2 O2 Flow FiO2 Ox Delivery Rate 03/06 0658 97.9 62 16 108/79 98 Room Air 0.0 03/06 0307 98.4 62 14 110/70 98 Room Air 03/06 0004 98.2 57 16 110/65 98 Room Air 03/05 2152 Room Air 03/05 1839 98.2 64 20 163/87 96 03/05 1422 98.4 69 19 154/87 98 03/05 1118 97.7 73 19 127/77 97 Room Air 03/05 0906 Room Air 03/05 0754 98.2 69 17 109/67 97 Room Air I&O 03/05 0800 03/05 1600 03/06 0000 Intake Total 1560 0 Output Total 501 553 1971 Balance 1160 -875 -1800 General Appearance Oriented X3, Cooperative, No acute distress, Mild distress HEENT Atraumatic, PERRLA, EOMI Lungs Clear to auscultation, Normal air movement Abdomen soft but moderately distended with rushes and gurgles. Increased tympany. Assessment and Plan Problem List 1. SMALL BOWEL OBSTRUCTION HIGH GRADE Plan This SBO is not resolving so pt. will get PICC and TPN and set up surgery for today ie attempted laparascopic lysis and possible open. Pt. is aware of potential risks ie infection, bleeding, scars, pain, damage to local structures, recurrent sbo, fistulas etc. She would like to have surgery as described to her.
--- NOTE | 2016-03-06 09:58 | DIAGNOSTIC IMAGING REPORT ---
PROCEDURE: XR CHEST 1 VIEW INDICATION: Verify PICC line placement TECHNIQUE: Portable AP view 09:48 a.m. COMPARISON: Chest x-ray 03/03/2016 FINDINGS: Interval placement of right PICC line with the tip in the SVC in satisfactory position. Poor inspiration with mild bibasilar atelectasis. Heart and mediastinum are normal. Thorax is normal. IMPRESSION: 1. Right PICC line in satisfactory position 2. Poor inspiration with mild bibasilar atelectasis 3. Results discussed with respiratory therapy (Madalyn.
--- NOTE | 2016-03-06 13:55 | NUR ---
PT RECEIVED TO PACU AROUSABLE AND COMFORTABLE, DENIES PAIN OR NAUSEA. NG TUBE SECURED AT 61 CM AND CONNECTED TO LIS, DRAINING GREEN FLUID. SHULTZ CATHETER SECURED TO LEG, DRAINING YELLOW URINE. ABDOMINAL BINDER WAS PLACED IN OR. VSS.
--- NOTE | 2016-03-06 14:07 | OPERATIVE REPORT ---
DATE OF SURGERY: 03/06/2016 SURGEON: Leo Santoyo MD PREOPERATIVE DIAGNOSIS: 1. Adhesive small-bowel obstruction POSTOPERATIVE DIAGNOSIS: 1. Adhesive small-bowel obstruction PROCEDURES PERFORMED: 1. Diagnostic laparoscopy with adhesiolysis 2. Laparotomy with adhesiolysis and repair of enterotomy ANESTHESIA: General. INDICATIONS: The patient is a 50-year-old woman with multiple prior surgeries, including of large ventral mesh repair and previous hysterectomy. The patient presented with a complete small-bowel obstruction that failed to resolve with decompression and did not open up with a Gastrografin upper gastrointestinal study. SURGICAL TECHNIQUE: The patient was taken to the operating room, where a general anesthetic was administered and the patient prepped and draped in the usual sterile fashion. The patient received IV cefotetan, sequential compression devices, and a local anesthetic of 0.5% Marcaine with epinephrine. A left upper quadrant puncture was made and a Veress needle used to insufflate the abdominal cavity. A 5 mm trocar was placed. Visualization was obtained. This demonstrated a dense band of midline adhesions leading down, covering the midline. There were large loops of distended bowel in the right lower quadrant. A tedious takedown was done to provide sufficient visualization to see what was going on in the pelvis. Following this, two 10 mm ports were placed in the left side of the abdomen once this area was freed up and visualization obtained. There were a couple of bands of adhesions that were taken down, but during the process of this, there was a tiny enterotomy created with a leak, and at that point it was decided to go to open surgery. The midline was taken down, with the laparoscopic advantage of having taken down most of the adhesions. Entering the abdomen, it was an area that had been cleared of adhesions, following which the fascial incision was carried out and the remaining anterior midline adhesions taken down under direct vision. This patient had a previous mesh repair, and there was a large pocket of yellowish fluid around the mesh, which appeared to be the reaction to the C-Cure adhesion barrier material. A Gram stain was submitted, and this was negative for bacteria, and cultures were also submitted. Loose or nonincorporated mesh was excised, but sufficient mesh was left to able to be included in the midline closure to avoid future hernias. A careful exploration of the abdomen was carried out, and the distended bowel was followed to a dense kink in the bowel that was in the right lower quadrant, but not at all related to the previous mesh. This was taken down with Metzenbaum scissors, and when the main adhesion popped open, the point of obstruction was uncovered, demonstrating a grayish imprint across the bowel. This pinked up with time, and distension material began flowing through it, into the nondistended bowel distal to it. Some local adhesions had to be taken down for this, but no attempt was made to take everything down, since the clear point of obstruction was encountered. The enterotomy had already been repaired. This was done with a [id number] 3-0 Vicryl suture and several interrupted seromuscular 3-0 silk Lembert sutures. The abdominal cavity was irrigated and found to be hemostatic. The bowel was returned to the abdomen, and the midline fascia was closed with running #1 PDS suture, incorporating bites of remaining mesh. Note, the patient had a laxity just above the pubis, and this was incorporated in the closure, but could result in a future recurrent hernia at this location. The subcutaneous tissues were irrigated, and the skin was loosely stapled with interrupted neda. Trocar sites were stapled and dressings were placed, and the patient left in stable condition. No intraoperative complications were encountered.
--- NOTE | 2016-03-06 15:11 | NUR ---
NUTRITION FOLLOW UP NOTE: Pt s/p diagnositic laproscopy with lysis of adhesions and repair of enterotomy. Pt just came back a few minutes ago from Pacu. Nsg attending. Pt has PICC in place and orders for TPN to start. RD recommendations in chart and pharmacy aware. RD to follow up and monitor closely.
--- NOTE | 2016-03-06 15:28 | NUR ---
PT RECEIVED 1000 ML FLUID BOLUS IN PACU FOR LOW URINE OUTPUT. 50 ML URINE DURING PACU STAY. PT AWAKE AND RATING PAIN 4/10 (DOWN FROM 7/10) AT TIME OF TRANSFER TO CCU. NO NAUSEA DURING PACU STAY. VSS.
--- NOTE | 2016-03-06 17:27 | NUR ---
TPN per pharmacy Started after PICC line placement and surgery today as per RD recommendations. Electrolytes reviewed - within normal limits; magnesium 1.9, phos 2.1; PREALBUMIN pending Clinimix E 5/20% at 65 ml/hr. Lipids 20% 250 ml daily Total IV fluids at 125 ml/hr Electrolyte labs will be repeated on 03/08 as per protocol. Pharmacist will follow
--- NOTE | 2016-03-06 18:55 | NUR ---
pt returned from surgery in stable condition. Dressing dry and intact, abd. binder on, NGT to LIS. Med for abd. pain with relief. Taking an occasional ice chip. Whitfield draining clear, yellow urine.
--- NOTE | 2016-03-06 21:48 | NUR ---
IVF/TPN POTASSIUM AMOUNTS CLARIFIED WITH DR. GRULLON. NO CHANGES.
--- NOTE | 2016-03-07 01:21 | NUR ---
IC=[id number]
[2016-03-07 02:31] VITALS: BP 120/72
--- NOTE | 2016-03-07 03:30 | NUR ---
A/Ox4, 3.5 L sats 93%, resp 20's, generalized abdominal pain managed with Dilaudid, no nausea, NGT pulling moderate bilious drainage, intact midline dressing c/d/i with abdominal binder in place, fine approx 30ml/hr, repositions self in bed, using IS with encouragement, call light in reach for safety/fall prevention.
[2016-03-07 07:27] VITALS: BP 112/63
--- NOTE | 2016-03-07 07:53 | Progress Note ---
Subjective General No complaints, feels ok this am and would like NG out. Physical Exam Vital Signs / I&Os Vital Signs Date Time Temp Pulse Resp B/P Pulse O2 O2 Flow FiO2 Ox Delivery Rate 03/07 0727 98.4 92 20 112/63 93 Nasal 3.5 Cannula 03/07 0231 99.5 96 20 120/72 93 Nasal 3.5 Cannula 03/06 2226 98.6 103 16 117/64 97 Nasal 3.5 Cannula 03/06 2000 3.5 03/06 1715 96 16 108/69 91 Nasal 2.0 Cannula 03/06 1614 88 16 112/67 93 Nasal 2.0 Cannula 03/06 1550 89 16 105/62 91 Nasal 2.0 Cannula 03/06 1535 80 16 103/60 91 Nasal 2.0 Cannula 03/06 1520 97.9 80 16 99/73 90 Nasal 2.0 Cannula 03/06 1455 82 13 115/71 93 Nasal 2.0 Cannula 03/06 1450 75 10 116/72 94 Nasal 2.0 Cannula 03/06 1445 98.1 71 12 119/75 94 Nasal 2.0 Cannula 03/06 1440 71 12 114/77 95 Nasal 2.0 Cannula 03/06 1435 69 71 123/79 94 Nasal 2.0 Cannula 03/06 1430 68 12 128/77 95 Nasal 2.0 Cannula 03/06 1425 66 12 129/80 95 Nasal 95.0 Cannula 03/06 1420 69 14 125/78 95 Nasal 2.0 Cannula 03/06 1415 65 12 123/77 95 Nasal 2.0 Cannula 03/06 1410 66 13 130/77 96 Nasal 2.0 Cannula 03/06 1405 65 13 137/78 96 Nasal 2.0 Cannula 03/06 1400 68 12 138/78 96 Nasal 2.0 Cannula 03/06 1355 73 13 140/82 97 Nasal 2.0 Cannula 03/06 1350 78 13 139/82 93 Nasal 2.0 Cannula 03/06 1345 93 16 133/84 95 Nasal 2.0 Cannula 03/06 1343 97.9 90 14 135/80 91 03/06 1126 Room Air 03/06 1040 98.1 68 16 108/70 95 Room Air 0.0 I&O 03/06 0800 03/06 1600 03/07 0000 Intake Total 2545 2800 0 Output Total 2300 940 850 Balance 245 1860 -850 General Appearance Alert, Oriented X3, Cooperative, No acute distress HEENT Normal exam, Atraumatic, PERRLA Lungs Normal exam Abdomen Normal bowel sounds, dressings intact, NG still green output, no stools or flatus Assessment and Plan Problem List 1. Small bowel obstruction Status Acute Onset Date 03/03/16 Plan watch ng output, ambulate, dc fine, tpn per protocol
--- NOTE | 2016-03-07 10:22 | NUR ---
NUTRITION FOLLOW UP NOTE: Pt started on TPN 03/06. Pt started on low dose SSI 2/2 elevated blood sugars since starting TPN, labs; glucose 167 this am. Accuchecks to start q 6 accuchecks. Discussed lab with pharmacy. Prealbumin lab noted; wnl. Pt meeting estimated protein needs via TPN. Rec continue nutrition plan of care, monitor wts, labs, accuchecks and monitor closely.
[2016-03-07 12:04] VITALS: BP 110/64
[2016-03-07 14:37] VITALS: BP 111/65
--- NOTE | 2016-03-07 15:48 | NUR ---
[place] ARORA'D THIS AM. PT VOIDING. ENCOURAGED TO BE UP AMBULATING IN HALLS FREQUENTLY, HAS WALKED SEVERAL TIMES INDEPENDENTLY TODAY. NG TUBE TO LIS, PUTTING OUT LARGE AMOUNT OF BILIOUS DRAINAGE. BOWEL TONES RARE, NO FLATUS. USING IS TO 500-1000. ENCOURAGED HOURLY USE, DB&C. DRESSING TO MIDLINE INCISION WITH MODERATE AMOUNT DRY BLOODY DRAINAGE. ABDOMINAL BINDER IN PLACE. WEANED O2 OFF TODAY, ROOM AIR SATS 94%. SLIDING SCALE INSULIN INITIATED FOR ELEVATED BLOOD SUGARS. TELE IN SINUS TACHY RHYTHM, HR LOW 100'S. VSS. WCTM.
[2016-03-07 18:40] VITALS: BP 110/64
[2016-03-07 22:25] VITALS: BP 116/55
[2016-03-08 02:34] VITALS: BP 121/62
--- NOTE | 2016-03-08 04:51 | NUR ---
Pt A/Ox4, up amb independently in hallway, using IS, NGT at LIS with minimal bilious drainage, hypo BT left greater than, no N/V, midline abd dressing with dried old drainage, abd binder in place, non skid socks on while out bed, uses call light appropriately.
[2016-03-08 07:13] VITALS: BP 111/57
--- NOTE | 2016-03-08 08:09 | Progress Note ---
Subjective General No new complaints, she would like to get rid of the NG. There has been no flatus or stool. Physical Exam Vital Signs / I&Os Vital Signs Date Time Temp Pulse Resp B/P Pulse O2 O2 Flow FiO2 Ox Delivery Rate 03/08 0713 98.6 96 18 111/57 93 Nasal 2.0 Cannula 03/08 0234 99.3 98 16 121/62 92 Nasal 2.0 Cannula 03/07 2225 99.3 106 16 116/55 93 Nasal 2.0 Cannula 03/07 1840 99.3 110 16 110/64 93 03/07 1437 97.5 115 16 111/65 94 03/07 1204 97.3 105 20 110/64 95 Room Air 03/07 0912 94 Room Air I&O 03/07 0800 03/07 1600 03/08 0000 Intake Total 1943 0 1742 Output Total 1400 1250 1025 Balance 543 -1250 717 General Appearance Alert, Oriented X3, Cooperative, No acute distress Abdomen Normal bowel sounds, non distended, dressings intact Assessment and Plan Problem List 1. SMALL BOWEL OBSTRUCTION HIGH GRADE Plan pt. has an ileus with continue high ng output. She feels like things are going to come out. We will try intermittent NG clamping but continue to return to suction and support with tpn.
[2016-03-08 11:55] VITALS: BP 108/59
[2016-03-08 14:24] VITALS: BP 114/64
--- NOTE | 2016-03-08 15:02 | NUR ---
NUTRITION FOLLOW UP NOTE: Pt continues on TPN. Rev'd labs, accuchecks q [address] 143-165, insulin in place for coverage. Pt continues on D5 at 60 x24 hours as well providing an extra ~245 kcals, MD aware. Pt continues to amublate in the ballard per observation, NG continues in place. RD to follow up and monitor nutrition indices prn/protocol.
--- NOTE | 2016-03-08 18:28 | NUR ---
PT TRIALED WITH NG CLAMPING Q2 HOURS THEN RELEASED FOR 10 MIN. IN 8 HOURS THE NG DRAINED [address] GRULLON AWARE AND VERBAL ORDER TO KEEP NG TO SUCTION @ LIS UNTIL FURTHER ORDERS. SHE HAS BEEN OOB AMBULATING THE HALLWAY FREQUENTLY. STATES, "I HAVE NOT PASSED GAS YET." BT'S HYPOACTIVE X'S 4. PT OOB AT THIS TIME CLEANING UP AND WASHING HER HAIR AT THE SINK. MEDICATED WITH DILAUDID IV X'S 2 IN 12 HOURS, EFFECTIVE FOR PAIN. WCTM.
[2016-03-08 19:13] VITALS: BP 117/61
[2016-03-08 22:45] VITALS: BP 108/52
--- NOTE | 2016-03-09 03:14 | NUR ---
A/Ox4, HRR, using IS [id number] while awake,2L n/c while asleep, very hypo BT x 4, denies flatus, intact midline abdominal dressing, wearing abdominal binder, NGT at LIS with skin intact otherwise with bruising to left arm from previous IV attempts, independent for BSC, ambulates in hallway independently and safely. Requested Dilaudid x 2 so far on this shift.
[2016-03-09 03:45] VITALS: BP 118/58
[2016-03-09 07:14] VITALS: BP 126/70
--- NOTE | 2016-03-09 10:06 | NUR ---
NUTRITION FOLLOW UP NOTE: Pt continues NPO no flatus, ambulatory, surgeon wishes to continue present management. Prealbumin lab was 10 (10-36 wnl); borderline low, also albumin 1.7 day 2. Rec change TPN to D15% / AA5% to run at 80 mls per hour (1920mls) and keep lipids 250 mls 20% daily. This provides ~1863 kcals including D5 at 60 = 2107 kcals total and 96 g protein = 31 kcals per kg and 1.43 g protein per kg. prevously 1.16 g per kg. Will continue to monitor wts/labs. Rec re draw preablumin lab next week (/Sat).
[2016-03-09 11:35] VITALS: BP 119/60
[2016-03-09 14:34] VITALS: BP 109/77
--- NOTE | 2016-03-09 17:11 | NUR ---
Patient has been alert and oriented throughout shift. NG in place and draining green fluid. Gave pain medication as ordered. No complaints of nausea or vomiting. Patient has been ambulating in the hallway and to the bathroom and is very steady on her feet. Friend at bedside for part of the day. Will continue to monitor patient until reporting off to next nurse.
[2016-03-09 18:27] VITALS: BP 116/62
[2016-03-09 22:17] VITALS: BP 116/62
[2016-03-10 02:24] VITALS: BP 127/59
[2016-03-10 06:38] VITALS: BP 116/62
[2016-03-10 11:03] VITALS: BP 109/59
[2016-03-10 14:31] VITALS: BP 106/57
[2016-03-10 18:39] VITALS: BP 109/55
[2016-03-10 22:32] VITALS: BP 124/61
[2016-03-11 02:34] VITALS: BP 126/58
--- NOTE | 2016-03-11 05:45 | NUR ---
TURNED DOWN SUCTION JUST A LITTLE, PATIENT BEGAN HAVING HEART BURN, NAUSEA AND A FULL FEELING, INCREASED SUCTION AND MEDICATED FOR NAUSEA WITH RELIEF, STILL NOT PASSING FLATUS, WILL CONTINUE TO MONITOR
[2016-03-11 06:49] VITALS: BP 122/65
[2016-03-11 10:23] VITALS: BP 99/61
--- NOTE | 2016-03-11 10:48 | NUR ---
I discussed with the patient their current medications, possible side effects, and answered questions.
--- NOTE | 2016-03-11 11:52 | DIAGNOSTIC IMAGING REPORT ---
PROCEDURE: XR ABDOMEN 1 VIEW UPRIGHT INDICATION: Follow-up surgery and bowel obstruction. TECHNIQUE: AP upright view (1115 hours) COMPARISON: Compared small bowel series on 03/05/2016. FINDINGS: NG tube in mid stomach. There are surgical clips and coils overlying the abdomen. There are surgical clips in right upper quadrant. Mild gaseous distention of central distal bowel loops. There is no evidence of free air. There is mild to moderate bibasilar atelectasis IMPRESSION: 1. NG tube and mid stomach. 2. Mildly dilated central and distal small bowel loops compatible with resolving small bowel obstruction. 3. Mild bibasilar atelectasis.
[2016-03-11 14:47] VITALS: BP 104/57
--- NOTE | 2016-03-11 18:04 | NUR ---
DRESSING CHANGE TO ABD. WOUND, STERILE MOIST PACKING TO OPEN AREA, COVERED WITH 4X4 AND ABD. PT HAS BEEN UP AMBULATING IN THE [place], [facility]. ACTIVITY WELL. USES INCENTIVE SPIROMETER WHILE AWAKE, REACHING 1000 TO 1500 LEVEL. MED. FOR PAIN PRIOR TO DRESSING CHANGE.
[2016-03-11 19:17] VITALS: BP 116/62
[2016-03-11 23:00] VITALS: BP 121/58
--- NOTE | 2016-03-11 23:24 | NUR ---
did complete assessment, pt alert, oriented and independent, ng in left nare at 61cm connected to lis draining clear yellow to green fluid, heart rate regular with murmur, lung sounds in left lower lobe has some fine crackles, encouraged cough and deep brathe, has midline surgical incision in abdomen, dressing change complete, wet to dry with some packing, patient tolerated well, abdominal binder in place, bowel tones hypoactive and patient is still not pasing flatus, up ambulating in hallway q2hrs, picc in og, tpn and lipids running, will continue to monitor
--- NOTE | 2016-03-12 01:53 | NUR ---
Pt was up earlier to BSC to void. Denies pain. [facility] thin green output. Abd binder on w/dsg underneat & lap sites. TPN/lipids/IVF via R PICC. Using IS to 1500. Denies nausea. Plan is labs & dsg chg in am.
[2016-03-12 02:28] VITALS: BP 128/67
[2016-03-12 06:20] VITALS: BP 129/71
--- NOTE | 2016-03-12 09:30 | NUR ---
Patient sitting up in chair watching TV. Denies pain and nausea. Patient instructed to be up ambulating frequently in hallways. NG 63 at nares. NG to LIS small amount of thin green drainage noted. 0 flatus and BT absent at this time. Abd binder in place. Abd dressing intact. Will change dressing when MD rounds. Patient up to bathroom independently. No complaints at this time. Pleasant and cooperative with care. Will continue to monitor.
--- NOTE | 2016-03-12 10:25 | NUR ---
Vancomycin dosing per pharmacy trough 14.5 in therapeutic range Continue current dosing Vancomycin 1 gm IV q8h Repeat next trough level in 5 day if patient continues on therapy. Pharmacist will follow
[2016-03-12 11:01] VITALS: BP 116/74
--- NOTE | 2016-03-12 13:57 | NUR ---
In to see patient with Dr. Santoyo, dressing removed that is saturated with serosanginous exudate. Dr. Santoyo assessed wound and plan is to continue TID moist gauze dressing changes. Wound Measured and photo taken, please see photographic wound assessment sheet for wound characteristics. Wound cleansed with NS, Moist gauze placed into wound space, covered with gauze and ABD pad, abdominal binder placed. Pt states pain at beginning of dressing change of 4/10, declined pain medicine, and tolerated procedure well.
[2016-03-12 14:33] VITALS: BP 121/66
--- NOTE | 2016-03-12 15:18 | NUR ---
NUTRITION FOLLOW UP NOTE: Pt continues on TPN, NPO. Per MD notes pt NG clamped but MD would like to keep pt NPO for now. Per nsg pt had very small stool. firer electric locomotive in to see pt. Pts amino acids were increased last week as pt has increased healing needs (see would care notes). Rec draw prealbumin this week. RD to continue to monitor nutrition indices, oral nutrition progress and follow up.
--- NOTE | 2016-03-12 17:48 | NUR ---
Patient in bed resting at this time. NG clamped for 2 hours and then to suction for residual check x 2. NG residual <50. NG d/c'd. Abd dressing intact. Abd binder on. No complaints at this time. Pleasant and cooperative with care. Will continue to monitor.
[2016-03-12 18:42] VITALS: BP 127/81
--- NOTE | 2016-03-12 19:18 | NUR ---
Patient resting in bed. Denies nausea and pain. Piccline patent ENID. TPN 80cc/hr. IV D 5 02/12 NS with 20 MEQ KCL 45cc/hr. Patient encouraged to be up ambulating in hallways frequently. No complaints at this time. Pleasant and cooperative with care. Will continue to monitor.
[2016-03-12 22:28] VITALS: BP 135/65
--- NOTE | 2016-03-13 00:47 | NUR ---
CHANGED PATIENT ABDOMINAL DRESSING, REDDISH BROWN DISCHARGE ON ABD AND TOP LAYERS OF WET TO DRY DRESSING, PURULENT DRAINAGE AND FOUL SMELL ON PACKING AND PURULENT DRAINAGE FROM THE WOUND BED, IRRIGATED AND CLEANED OUT, REPACKED AND DRESSED, PATIENT TOLERATED WELL, WILL CONTINUE TO MONITOR
[2016-03-13 02:55] VITALS: BP 121/67
[2016-03-13 06:58] VITALS: BP 118/59
[2016-03-13 11:07] VITALS: BP 117/69
--- NOTE | 2016-03-13 12:56 | NUR ---
NUTRITION FOLLOW UP NOTE: Pt NG out, started clear liquids today, continues on TPN as well. Rec BOOST breeze juice tid between meals. RD to continue to monitor oral nutrition progress, wts/labs, nutrition indices closely.
[2016-03-13 15:23] VITALS: BP 114/64
--- NOTE | 2016-03-13 15:50 | NUR ---
UP AMBULATING IN HALLS AD RADHA. PASSING FLATUS. ONE SMALL BM THIS AM. LOWER STAPLE REMOVED AND WOUND VAC APPLIED. DRAINING SMALL AMOUNTS OF PINKISH DRAINAGE.
[2016-03-13 18:00] VITALS: BP 125/63
[2016-03-13 21:28] VITALS: BP 117/65
--- NOTE | 2016-03-13 21:50 | NUR ---
PT UP INDEPENDENTLY IN ROOM, AMBULATING IN HALLS. WOUND VAC IN PLACE TO LOW ASPECT OF MIDLINE INCISION, MINIMAL PINK PURULENT DRAINAGE. FLATUS +, BT HYPO. DENIES NAUSEA. C/O PAIN TO RLQ AND SURGICAL INCISION. MEDICATED WITH IV DILAUDID WITH RELIEF. PT HAS A STRONG, PRODUCTIVE COUGH. LS CLEAR. WCTM.
[2016-03-14 02:30] VITALS: BP 124/65
[2016-03-14 07:37] VITALS: BP 120/67
[2016-03-14 10:14] VITALS: BP 127/67
--- NOTE | 2016-03-14 12:17 | NUR ---
NUTRITION FOLLOW UP NOTE: Pt started on clear liquids yesterday. TPN still running at 80 mls per hour. Pt has wound vac and ambulating. Rec advance diet to full liquids if able and taper TPN as pt tolerates diet advancement. Rec re draw prealbumin lab. RD to continue to follow closely.
--- NOTE | 2016-03-14 13:07 | NUR ---
UP AMBULATING IN HALLS AD RADHA. HAD ONE SMALL FORMED, SOFT STOOL. WOUND VAC FUNCTIONING WELL.
--- NOTE | 2016-03-14 13:47 | NUR ---
In to see patient, has wound vac placed to open area of abdominal wound, suction placed, pt tolerating well. Call placed to Dr. Santoyo about plan of care, discharge planned possibly by the weekend, will need follow up at the [facility], call placed and appointment made for SaturdayMar 20 at 0930 am. Will work on authorization of wound vac as well with [employer]. Will continue to monitor.
--- NOTE | 2016-03-14 14:15 | NUR ---
Received pt from room 302 to room 211. Alert and oriented pt with wound vac in place to lower abd incision, brownish output noted in wound vac tubing. DL PICC line intact to [place] with TPN infusing to red port @ 80/hr. Pt has occ wheeze and there is good air movement in lungs. Pt states she has a little pain but refuses pain medication at this time. Pt states she is tolerating clear liquids well. Alert and oriented, and ambulating in hallway ad rosa.
[2016-03-14 14:25] VITALS: BP 112/71
--- NOTE | 2016-03-14 15:26 | NUR ---
Call placed to [facility] to coordinate care for patient after discharge. Spoke with [employer] Colindres, who will start working on wound vac authorization for outpatient use, will keep in touch as patients discharge date becomes clear, and coordinate discharge plan. If discharged on Saturday, may be able to have pt go to wound center for outpatient wound vac to be placed. Otherwise if discharged over the weekend, will place moist dressing, with dressing changes done by family and have pt follow up at scheduled appt on Saturday. Will continue to monitor patient status.
[2016-03-14 18:25] VITALS: BP 113/71
--- NOTE | 2016-03-14 18:55 | NUR ---
One of the pt's PICC lumen became clogged. Called and obtained Alteplase. Intervention effective and the line is flushing well now. Bt has been hypo with occ bouts of hyperactive BT. Abdomen softly distended. Sutures on ABD CDI, and wound vac working appropriately. Noted minimal brownish drainage. Alma clear liquid well. No c/o nausea, pain, or SOB. Will cont to monitor.
[2016-03-14 22:25] VITALS: BP 111/58
--- NOTE | 2016-03-14 23:37 | NUR ---
VSS. A&OX4. SEE SHIFT ASSESSMENT FOR DETAILS ON WOUND VAC AND WOUND ASSESSMENT/CARE. WOUND VAC FOAM, TUBING AND DRAPING CHANGED DUE TO LEAK AND INEFFECTIVE SUCTIONING. ADORE POPPING UP, REMOVED. WCTM.
[2016-03-15 02:04] VITALS: BP 109/54
--- NOTE | 2016-03-15 02:05 | NUR ---
Pt. is resting in bed at this time. Blood sugar checks q 6 hours. TPN and lipids infusing in ENID PICC without issues. Flushed PICC line, flushes with ease. Assessment completed. Abd. binder on, wound vac on continuous suction at 125 mm Hg without issues. Bowel tones hypoactive in bilat. lower quadrants. Pt. is resting at this time, denies pain. Call light within reach. WCTM.
[2016-03-15 06:52] VITALS: BP 110/65
--- NOTE | 2016-03-15 09:37 | NUR ---
Call to Dr. Santoyo to discuss plan of care, tentative discharge home tomorrow, asked Dr. Santoyo for morning discharge, so that I may d/c wound vac, place moist gauze in wound base and then have patient go over and be seen by [facility] for replacement of Home Wound Vac unit. Pt then has follow up appt already scheduled for Saturday at 0930. Discharge depends upon how patient tolerates PO today, will continue to monitor.
--- NOTE | 2016-03-15 10:11 | NUR ---
PER DR ORDER, CHANGED RATE OF TPN FROM 80MLS/HR TO 40 MLS/HR. DR CALLED AT 1005 TO CONFIRM RATE CHANGE. PHARMACY NOTIFIED EMAR WAS STILL SHOWING 80 MLS/HR.
[2016-03-15 11:00] VITALS: BP 121/77
--- NOTE | 2016-03-15 13:48 | NUR ---
NUTRITION FOLLOW UP NOTE: TPN tapering this afternoon, at 40mls per nsg. Pt is on last bag of TPN today. Diet advanced to general for lunch today. Spoke with pt, states, feels fine, lunch went fine, no issues (pain or nausea). Pt excited to go home tomorrow. RD avail for further consult if desired and will follow up prn/protocol.
[2016-03-15 14:28] VITALS: BP 115/69
[2016-03-15 19:29] VITALS: BP 114/64
[2016-03-15 22:41] VITALS: BP 110/60
--- NOTE | 2016-03-15 23:55 | NUR ---
RESTING IN BED ABDOMINAL DISCOMFORT 4/10 STATES PAIN MEDS EFEFCTIVE. ABDOMINAL BINDER IN PLACED. LIGHT BROWN DRAINAGE PER WOUND VAC.
--- NOTE | 2016-03-16 00:56 | NUR ---
Pt misha general diet well without increase in pain or nausea. Pt still gets minor pain 4/10 at SI and occ required dialudid. Talked to and obtained PO percocet order. Wound vac working properly. BTx4, abd softly distended, passing gas. TPN was discontinued this shift. Will cont to monitor.
[2016-03-16 04:07] VITALS: BP 118/55
[2016-03-16 06:41] VITALS: BP 109/70
[2016-03-16] MEDS ORDERED: PERCOCET1 TA1 PO (08:24)
--- NOTE | 2016-03-16 08:25 | Provider's Discharge Care Plan ---
Problem, Goal, Plan Problem List 1. Small bowel obstruction
--- NOTE | 2016-03-16 08:25 | Provider's Discharge Care Plan ---
Problem, Goal, Plan Problem List 1. Small bowel obstruction
--- NOTE | 2016-03-16 10:11 | NUR ---
Received discharge orders for patient from Dr. Santoyo, call placed to Bernadine at [facility] arranged for patient to be seen after discharge at 1030 at the wound center. In to see patient and removed wound vac dressing, cleansed wound with NS, granulation tissue present in wound, please see photographic wound assessment sheet for photo and wound characteristics. Moist saline gauze dressing placed into wound to fill space, covered with gauze,abd pad,abdominal binder. Pt tolerated procedure well, reinterated need to go right to Wound center after discharge and follow up appt then next Saturday, will continue to monitor.
--- NOTE | 2016-03-16 10:33 | NUR ---
DISCHARGE INSTRUCTIONS REVIEWED WITH PT AND , QUESTIONS ANSWERED. Rx FOR PERCOCET GIVEN TO PT, AND Rx FOR AMPICILLIN CALLED IN TO [facility]. PT DISCHARGED, AMB TO WALK OUT OF THE FACILITY. PT WILL GO DIRECTLY TO THE WOUND CARE CLINIC FROM HERE, AND SHE UNDERSTANDS THIS.
--- NOTE | 2016-03-22 15:21 | DISCHARGE SUMMARY ---
ADMIT DATE: 03/03/2016 DISCHARGE DATE: 03/16/2016 DISCHARGE DIAGNOSES: 1. Adhesive small-bowel obstruction. 2. Wound abscess HOSPITAL COURSE: The patient is a 50-year-old woman admitted to the hospital with abdominal pain, nausea and vomiting. She had mild chemical evidence of pancreatitis, but the primary pathology here seemed to be high-grade small-bowel obstruction. This patient has undergone previous multiple surgeries including hysterectomy and a herniorrhaphy in 2011. Hysterectomy was for carcinoma and included lymph node sampling and treatment of a tubo-ovarian abscess. That operation resulted in a long hospitalization and wound dehiscence. After being admitted to the hospital, the patient was treated with nasogastric decompression and intravenous hydration. The decompressive methods improved her symptomatology markedly; however, nasogastric output remained high and the patient was submitted to an upper GI with small bowel follow through on 2016 and after 8-1/2 hours, the patient demonstrated a complete small-bowel obstruction. She was taken to surgery on 03/06/2016 where she underwent a laparoscopic adhesiolysis. During this process, the patient was found to have extensive adhesions as well as a markedly dilated small bowel. Most of the anterior abdominal wall adhesions were first taken down which freed up the abdominal wall; however, during dissection in the pelvis, an enterotomy ensued and the patient was converted to open surgery where the enterotomy was immediately repaired and cleaned up. There was also a large pocket of yellowish fluid behind the previous mesh repair, which was the C-QUR adhesion barrier. Gram stains from this revealed no bacteria. A specific kink of adhesion was found and that there was a specific obstruction point that was taken down. Following this, fluid moved through without obstruction. Unincorporated mesh was excised. Postoperatively, the patient initially had a gradual recovery. However, over several days, the patient developed swelling and erythema in the wound and a wound infection was opened up and drained. This subsequently grew enterococcus. The patient was managed with antibiotics and the wound was opened further and wound VAC put in. There was some concern about this infection eventually extending down to the mesh material, but at least during the hospital stay, this did not appear to be obviously the case. The patient was then discharged after her diet was fully advanced and she was off of fluid support, passing stools and with the VAC in place. DISCHARGE INSTRUCTIONS/MEDICATIONS: The patient will be followed up in the [facility] for wound VAC management as well as by the surgery clinic.
== END 2016-03-16 10:20 | disposition home or self-care (01) | DRG 329 ==
LOC: ED SRH 08:38 → TRANS SRH 15:19 → CC SRH 19:41 → ACUTE2 SRH 03-14 14:18
PROVIDERS: Surgery; ADMIT Emergency Medicine
PROC: 0J980ZZ Drainage of Abdomen Subcutaneous Tissue and Fascia, Open Approach (ICD-10-PCS; 2016-03-03)
PROC: 0D9670Z Drainage of Stomach with Drainage Device, Via Natural or Artificial Opening (ICD-10-PCS; 2016-03-03)
PROC: 3E0336Z Introduction of Nutritional Substance into Peripheral Vein, Percutaneous Approach (ICD-10-PCS; 2016-03-06)
PROC: 0DN84ZZ Release Small Intestine, Percutaneous Endoscopic Approach (ICD-10-PCS; principal; 2016-03-06 11:45)
PROC: 0DN80ZZ Release Small Intestine, Open Approach (ICD-10-PCS; principal; 2016-03-06 11:45)
PROC: 0DQ80ZZ Repair Small Intestine, Open Approach (ICD-10-PCS; principal; 2016-03-06 11:45)
PROC: 02HV33Z Insertion of Infusion Device into Superior Vena Cava, Percutaneous Approach (ICD-10-PCS; 2016-03-06 11:45)
PROC: 3C1ZX8Z Irrigation of Indwelling Device using Irrigating Substance, External Approach (ICD-10-PCS; 2016-03-14)
DX: K56.5 Intestinal adhesions [bands] with obstruction (postinfection) (principal); K85.00 Idiopathic acute pancreatitis without necrosis or infection; K91.71 Accidental puncture and laceration of a digestive system organ or structure during a digestive system procedure; T81.4XXA Infection following a procedure, initial encounter; B95.2 Enterococcus as the cause of diseases classified elsewhere; K91.3 Postprocedural intestinal obstruction; N39.0 Urinary tract infection, site not specified; T82.818A Embolism due to vascular prosthetic devices, implants and grafts, initial encounter; E11.65 Type 2 diabetes mellitus with hyperglycemia; E86.0 Dehydration; F14.14 Cocaine abuse with cocaine-induced mood disorder

== ENCOUNTER 2016-04-16 10:44 | Day surgery (SDC) | payer OTHER ==
--- NOTE | 2016-04-10 15:21 | HISTORY AND PHYSICAL ---
ADMITTED: 04/16/2016 CHIEF COMPLAINT: 1. Abdominal wound sinus HISTORY OF PRESENT ILLNESS: The patient is a 50-year-old woman who underwent surgery for an adhesive small-bowel obstruction. She had a previous history of multiple abdominal operations, including placement of a prosthetic mesh for treatment of a ventral hernia left from previous gynecologic surgery. This occurred in 2011. The patient developed a wound infection postoperatively, and since that time things have settled down; however, she continues to drain from the anterior abdominal wound despite the use of a wound VAC, and the mesh is clearly visible and involved in the infectious process. MEDICAL/SURGICAL HISTORY: Medical history includes depression, urinary incontinence, low back pain, arthritis, and GERD. Past medical history is negative for gastrointestinal problems or hereditary diseases, urinary incontinence, low back pain, arthritis, GERD. Past surgery: Carpal tunnel surgery, hysterectomy, ventral herniorrhaphy upper and lower GI endoscopy, laparoscopic Moses in 2013, laparoscopic ventral hernia in 2011, cholecystectomy. MEDICATIONS: 1. Celebrex 50 mg b.i.d. 2. Cyclobenzaprine 10 mg every day. ALLERGIES: 1. NONE TO MEDICATIONS. SOCIAL HISTORY: The patient works for [employer]. She is single, lives in [place]. She is not a smoker. FAMILY HISTORY: The patient reports no hereditary diseases REVIEW OF SYSTEMS: A multipoint review of systems obtained on 04/05/2016, covering at least 8 systems, and there are no new complaints. She is eating and bowel movements are normal. PHYSICAL EXAMINATION: GENERAL: The patient is alert and cooperative. Mental status is normal. She is oriented to time and place. VITAL SIGNS: Height 66 inches, weight 135. Temperature 98.9, pulse 85, respirations 16, blood pressure 106/59 HEENT: Head and neck without external lesions. Eyes are equal. She is anicteric. NECK: Without palpable mass or thyromegaly. CHEST: Clear to auscultation. HEART: Regular, without murmur or gallop. ABDOMEN: Reveals a midline wound sinus measuring 5 x 8 mm with a 2.4 cm tunneling. An applicator was used to palpate, and there is clearly gritty mesh which is somewhat loose and unincorporated in the base of the wound. Her abdomen is otherwise soft. Bowel sounds are active. She is nondistended. IMPRESSION: 1. Wound sinus with unincorporated mesh PLAN: I recommended wound exploration with explantation of unincorporated mesh. The patient is already aware that this is an eventuality and is aware of the potential risks, such as infection, bleeding, scars, pain, damage to local structures, and recurrence of ventral hernia. The patient would like to proceed as described to her.
[~2016-04-16 10:44] MED LIST changes: +PERCOCET1 TA1 PO; +VITAMIN D-31000 UNIT PO
[2016-04-16] MEDS ORDERED: NORCO1 TA1 PO (14:26)
--- NOTE | 2016-04-16 14:26 | Provider's Discharge Care Plan ---
Problem, Goal, Plan Problem List 1. Wound infection complicating hardware
--- NOTE | 2016-04-16 14:26 | Provider's Discharge Care Plan ---
Problem, Goal, Plan Problem List 1. Wound infection complicating hardware
--- NOTE | 2016-04-16 15:04 | OPERATIVE REPORT ---
DATE OF SURGERY: 04/16/2016 SURGEON: Leo Santoyo MD PREOPERATIVE DIAGNOSIS: 1. Infected mesh of abdomen POSTOPERATIVE DIAGNOSIS: 1. Infected mesh of abdomen PROCEDURE PERFORMED: 1. Exploration of abdominal wound with explantation of abdominal mesh and debridement, including skin, subcutaneous tissue, fascia and intra-abdominal mesh, total wound about 5 x 10 cm ANESTHESIA: General. INDICATIONS: The patient is a 50-year-old woman who had a remote large prosthetic mesh repair. Since that time, the patient had an emergency surgery for a complete small-bowel obstruction, during which she required bowel resection. She recovered from this; however, then developed an infection in the mesh that was incised during the approach to the bowel. A Vacuum-assisted closure device has failed to clean things up, and she has been having foul-smelling drainage, and the wound sinus probes down to mesh. SURGICAL TECHNIQUE: The patient was taken to the operating room, where a general anesthetic was administered and the patient prepped and draped in the usual sterile fashion. The wound sinus was opened up, going in a craniad direction, and the exposed mesh was found. This proved to be a large piece of mesh that extended well underneath the fascia, with quite a bit of overlap. There were a number of tacks as well as polypropylene sutures. This was all foul-smelling and soupy and had to be complete explanted. It was followed inferiorly where there was an extra small tab of mesh going down toward the pelvis. All loose and unincorporated mesh was sharply excised. There was a small bit of rim of mesh left firmly encased in fascia distally, and this was left alone. After removing all foreign body from the wound, this left a rather large cavity, at least 5 x 10 cm. The areas where there was still some loose granulation were debrided using a curette. This involved both the fascial layer as well as the subcutaneous layer. The wound was irrigated and found to be hemostatic, and careful inspection shows no signs of bowel injury, though there were some soft areas that were likely to be anterior surface of bowel that were exposed. A single layer of Adaptic gauze was placed to protect the bowel, following which a black sponge was placed within it for use with a VAC device. The skin was treated with Mastisol and the VAC plastic applied. The VAC was rigged up and connected to suction and held suction well. The patient left in good condition, and no intraoperative complications were encountered.
[2016-04-16 15:38] VITALS: BP 116/99
== END 2016-04-16 15:45 | disposition home or self-care (01) ==
LOC: OR SRH 10:44 → SCU SRH 10:47 → OR SRH 13:00
PROVIDERS: Surgery
PROC: 0JB80ZZ Excision of Abdomen Subcutaneous Tissue and Fascia, Open Approach (ICD-10-PCS; principal; 2016-04-16 13:00)
DX: T81.4XXA Infection following a procedure, initial encounter (principal); T85.79XA Infection and inflammatory reaction due to other internal prosthetic devices, implants and grafts, initial encounter
CPT/HCPCS: 29229; 29240; 50004; 60001; 70002; 80102; 80212; 84038; 90047; 90070; 90074; 90131; 90309; 90470; 95059

== ENCOUNTER 2016-06-12 13:18 | Outpatient (CLI) | payer OTHER ==
[~2016-06-12 13:18] MED LIST changes: +NORCO1 TA1 PO
--- NOTE | 2016-06-19 09:11 | DIAGNOSTIC IMAGING REPORT ---
PROCEDURE: MG BILATERAL SCREENING W/CAD INDICATION: Screening. Family history breast carcinoma (aunt). TECHNIQUE: Bilateral CC and MLO digital views. COMPARISON: Compared to 05/20/2015, 05/07/2014, and 04/21/2012. FINDINGS: Computer-aided detection applied. Mildly to moderately dense a few dystrophic calcifications. No change. IMPRESSION: 1. Negative mammogram RESULT CODE: Text there is one A. A negative report should not delay biopsy if a dominant or clinically suspicious mass is present. 10-15% of cancers are not identified by x-ray. B. A negative report may reinforce clinical impression. C. Adenosis and dense breasts may obscure an underlying neoplasm. D. False positive reports average 6-10%. E.. A yearly screening mammogram is recommended. A reminder letter will be scheduled.
== END 2016-06-12 23:00 ==
LOC: MAM SRH 13:18
DX: Z12.31 Encounter for screening mammogram for malignant neoplasm of breast (principal); Z80.3 Family history of malignant neoplasm of breast